=== PATIENT | male | born 1985 | race Caucasian/White ===

== ENCOUNTER 2023-02-13 01:47 | Inpatient (IN) ==
[2023-02-13] MEDS ORDERED: MoRPHine SULFATE 4 MG/ML 1 ML CARP\\VIAL IV STA (02:27)
[2023-02-13] MEDS ORDERED: PROCHLORPERAZINE 1 ML IV ONE (02:27)
[2023-02-13] MEDS ORDERED: SODIUM CHLORIDE 0.9% 500 ML IV ONE (02:27)
--- NOTE | 2023-02-13 02:30 | Emergency Department Note ---
History of Present Illness General Chief complaint: Back Injury/Pain Stated complaint: AUTOCAD LOWER BACK,CANCER PATIENT Time Seen by Provider: 02/13/23 02:01 History of Present Illness Maximum Pain Intensity: 8 This is a 37-year-old male that presents to the emergency department via private vehicle with complaints of "severe low back pain, cancer". Patient here today with at bedside. Patient notes that he was recently diagnosed with pancreatic cancer metastasized to his liver in mid December of this year and then had a biopsy followed by stent placement in his duodenum and is now scheduled to receive chemotherapy through newly placed port starting tomorrow. However, he presents today noting worsening discomfort in his back radiating into the abdomen which is consistent with the pain he had previously but is now worsening. Furthermore, he notes as he is at home analgesic regimen is increasing he feels a twitching in his legs at times as well as increased paranoia. The patient denies any fever or infectious symptoms. He has had some vomiting now over the past 1 to 2 days. Current pain 8/10. He also notes ongoing pain in his right shoulder noting underlying musculoskeletal issue. No chest pain or shortness of breath. Home Medications Medication Instructions Recorded Confirmed Type ergocalciferol (vitamin D2) 1,250 1,250 mcg PO Q7D 01/25/23 02/13/23 History mcg (50,000 unit) capsule levothyroxine 25 mcg capsule 25 mcg PO QAM 01/25/23 02/13/23 History linaclotide 145 mcg capsule 145 mcg PO DAILY PRN Constipation 01/25/23 02/13/23 History (Brenda) naloxegol 12.5 mg tablet (Movantik) 12.5 mg PO QAM #30 tabs 01/25/23 02/13/23 Rx naloxone 4 mg/actuation nasal spray 1 spray intranasal Q3M PRN opioid 01/25/23 02/13/23 Rx overdose #2 ea omeprazole 20 mg capsule,delayed 20 mg PO BID 01/25/23 02/13/23 History release ondansetron 4 mg disintegrating 4 mg PO Q6H PRN Nausea And Vomiting 01/25/23 02/13/23 History tablet polyethylene glycol 3350 17 17 g PO DAILY 01/25/23 02/13/23 History gram/dose oral powder (Miralax) prochlorperazine maleate 5 mg 5 mg PO Q6H PRN nausea and 01/25/23 02/13/23 Rx tablet vomiting #60 tabs fentanyl 25 mcg/hr transdermal 1 patch transdermal Q72H very 02/01/23 02/13/23 Rx patch severe cancer pain 1 month #10 ea oxycodone 15 mg tablet 15 mg PO Q4H PRN severe cancer 02/01/23 02/13/23 Rx pain breakthrough 1 month #120 tabs acetaminophen 500 mg tablet 1,000 mg PO BID PRN Pain 02/06/23 02/13/23 History Allergies Allergy/AdvReac Type Severity Reaction Status Date / Time No Known Drug Allergies Allergy none Verified 02/06/23 07:14 Past Med/Surg History Medical History Hypothyroidism History of COVID-19 01/19/23, tested + [facility], asymptomatic>"never developed any symptoms either" Constipation 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 Beliefs That Will Affect Care: None Current Living Situation: Spouse Other Information That Helps Us Care for You: No Feels Safe at Home: Yes Safety Concerns: Feels Safe At This Time Assistive Devices: Glasses Review of Systems A total of 10 systems reviewed and were otherwise negative Physical Exam Vital Signs Vital Signs - 24 hr 02/13/23 01:52 02/13/23 02:36 02/13/23 02:37 Temperature 36.4 C L Temperature Source Oral Pulse Rate 93 H 75 Pulse Rate [Apical] 87 Respiratory Rate 18 16 Respiratory Effort / Characteristics Non-Labored Spontaneous Respiratory Depth Normal Respiratory Pattern Regular Blood Pressure 142/94 H Blood Pressure [Right Arm] 167/100 H Blood Pressure Mean 110 Blood Pressure Mean [Right Arm] 122 Blood Pressure Position Sitting Pulse Oximetry 99 93 Oxygen Delivery Method Room Air Room Air Sepsis Recent Fever Within 48 Hours No Sepsis New/Unexplained Change in Mental Status N/A Sepsis Action Taken by Nursing No Action Required 02/13/23 03:42 02/13/23 05:04 02/13/23 06:00 Temperature Temperature Source Pulse Rate Pulse Rate [Apical] 79 100 H 88 Respiratory Rate 16 16 16 Respiratory Effort / Characteristics Respiratory Depth Respiratory Pattern Blood Pressure Blood Pressure [Right Arm] 145/91 H 152/87 H 130/79 Blood Pressure Mean Blood Pressure Mean [Right Arm] 109 108 96 Blood Pressure Position Pulse Oximetry 99 97 97 Oxygen Delivery Method Room Air Room Air Room Air Sepsis Recent Fever Within 48 Hours Sepsis New/Unexplained Change in Mental Status Sepsis Action Taken by Nursing 02/13/23 06:28 02/13/23 07:44 02/13/23 08:15 Temperature Temperature Source Pulse Rate 114 H Pulse Rate [Apical] 95 H Respiratory Rate 19 Respiratory Effort / Characteristics Non-Labored Spontaneous Respiratory Depth Normal Respiratory Pattern Blood Pressure Blood Pressure [Right Arm] Blood Pressure Mean Blood Pressure Mean [Right Arm] Blood Pressure Position Pulse Oximetry 96 96 Oxygen Delivery Method Room Air Room Air Sepsis Recent Fever Within 48 Hours Sepsis New/Unexplained Change in Mental Status Sepsis Action Taken by Nursing 02/13/23 10:14 Temperature Temperature Source Pulse Rate Pulse Rate [Apical] 100 H Respiratory Rate 18 Respiratory Effort / Characteristics Non-Labored Respiratory Depth Normal Respiratory Pattern Blood Pressure Blood Pressure [Right Arm] Blood Pressure Mean Blood Pressure Mean [Right Arm] Blood Pressure Position Pulse Oximetry 97 Oxygen Delivery Method Room Air Sepsis Recent Fever Within 48 Hours Sepsis New/Unexplained Change in Mental Status Sepsis Action Taken by Nursing VITAL SIGNS - Vital signs and nursing notes were reviewed. Stable and afebrile. GENERAL -37-year-old male appearing his stated age who is in no acute distress but is pacing about the exam room and holding his low back. Communicates well with provider and answers questions appropriately. SKIN -mildly pale appearance. No lesions or rashes. HEAD - NC/AT. EYES - Sclera with very mild icteric appearance. EARS - No deformities of external structures noted on gross examination bilaterally. NOSE - Midline and without cyanosis. No epistaxis or purulent drainage noted. MOUTH/OROPHARYNX - Without perioral cyanosis. NECK - Neck with FROM. No nuchal rigidity. LUNGS - Chest wall symmetric without accessory muscle use, intercostals retractions, or central cyanosis. Normal vesicular breath sounds CTA B/L. No wheezes, rales, or rhonchi appreciated. CARDIAC - RRR with S1/S2. No murmur, rubs, or gallops appreciated. ABDOMEN - Abdominal contour normal. No guarding or ridigity. EXTREMITIES - No clubbing or peripheral cyanosis. +5/5 strength noted in UE/LE bilaterally. NEUROLOGIC - Cranial nerves II through XII grossly intact. PSYCH - A&O, and cooperates fully with examiner. Pt is very pleasant and interacts well with examiner. Course Administered Medications Enoxaparin Sodium (Enoxaparin Inj 40 Mg/0.4 Ml Syr) 40 mg SQ Q24H [facility] Stop: 03/15/23 12:59 Last Admin: 02/13/23 17:17 Dose: 40 mg Documented By: GARY Fentanyl (Fentanyl 50 Mcg/Hr Tdsy) 50 mcg TD Q3D [facility] Stop: 02/27/23 12:14 Last Admin: 02/13/23 12:26 Dose: 50 mcg Documented By: PRACHI Prochlorperazine 5 mg/ Syringe 5 mls @ 5 mls/min IV Q6H PRN PRN Reason: Nausea And Vomiting Stop: 03/15/23 10:51 Last Admin: 02/13/23 11:24 Dose: 5 mls/min Documented By: PRACHI Flores (Check Fentanyl Patch Placement) 1 each N/A QS [facility] Stop: 03/15/23 15:59 Last Admin: 02/13/23 17:17 Dose: 1 each Documented By: GARY Miscellaneous (Fentanyl Patch Remove & Waste) 1 each N/A Q3D [facility] Stop: 03/15/23 12:13 Last Admin: 02/13/23 13:54 Dose: Not Given Documented By: PRACHI Morphine Sulfate (Morphine Sulfate 4 Mg/Ml 1 Ml Carp\\Vial) 4 mg IV Q4H PRN PRN Reason: Pain (5+) Stop: 02/27/23 10:51 Last Admin: 02/13/23 11:24 Dose: 4 mg Documented By: PRACHI Discontinued Medications Fentanyl Citrate (Fentanyl Citrate Pf 100 Mcg/2 Ml Vial) 50 mcg IV NOW STA Stop: 02/13/23 05:49 Last Admin: 02/13/23 06:03 Dose: 50 mcg Documented By: SOFIA Fentanyl Citrate (Fentanyl Citrate Pf 100 Mcg/2 Ml Vial) 50 mcg IV NOW STA Stop: 02/13/23 07:46 Last Admin: 02/13/23 07:56 Dose: 50 mcg Documented By: ROCIO Sodium Chloride (Nss) 500 mls @ 500 mls/hr IV .Q1H ONE Stop: 02/13/23 03:26 Last Infusion: 02/13/23 04:44 Dose: Infused Documented By: Admin: 02/13/23 03:33 Dose: 500 mls/hr Documented By: SOFIA Prochlorperazine (Compazine) 1 mls @ 1 mls/min IV ONE ONE Stop: 02/13/23 02:28 Last Admin: 02/13/23 03:31 Dose: 1 mls/min Documented By: SOFIA Lactated Ringer's (Lr) 500 mls @ 999 mls/hr IV .Q31M ONE Stop: 02/13/23 11:28 Last Infusion: 02/13/23 12:45 Dose: Infused Documented By: Admin: 02/13/23 11:24 Dose: 999 mls/hr Documented By: PRACHI Ioversol (Optiray 320 500ml) 100 ml IV ONCE ONE Stop: 02/13/23 06:19 Last Admin: 02/13/23 06:18 Dose: 89 ml Documented By: SPARKLE Lorazepam (Lorazepam 1 Mg/1 Ml Syr Ed Inj Use) 1 mg IV ONE STA Stop: 02/13/23 04:25 Last Admin: 02/13/23 04:55 Dose: 1 mg Documented By: SOFIA Morphine Sulfate (Morphine Sulfate 4 Mg/Ml 1 Ml Carp\\Vial) 4 mg IV NOW STA Stop: 02/13/23 02:28 Last Admin: 02/13/23 03:31 Dose: 4 mg Documented By: SOFIA Polyethylene Glycol (Polyethylene (Miralax) 17 Gm Pack) 17 gm PO NOW STA Stop: 02/13/23 11:05 Last Admin: 02/13/23 12:30 Dose: 17 gm Documented By: PRACHI Prochlorperazine (Prochlorperazine 5 Mg/Ml 2 Ml Vial) Confirm Administered Dose 10 mg .ROUTE .STK-MED ONE Stop: 02/13/23 11:18 Last Admin: 02/13/23 11:25 Dose: Not Given Documented By: PRACHI Medical Decision Making Laboratory Data 02/13/23 03:30 02/13/23 03:30 Lab Results 02/13/23 Range/Units 03:30 WBC 7.46 (4.8-10.8) K/ul RBC 4.56 L (4.70-6.10) M/uL Hgb 13.8 L (14.0-18.0) g/dl Hct 40.3 L (42.0-52.0) % MCV 88.4 (80.0-100.0) fL MCH 30.3 (25.0-34.0) pg MCHC 34.2 (32.0-36.0) g/dL RDW Std Deviation 42.0 (36.4-46.3) fL RDW Coeff of Dmitriy 13.0 (11.5-14.5) % Plt Count 170 (130-400) K/uL MPV 11.8 (9.4-12.4) fL Immature Gran % (Auto) 0.3 % Neut % (Auto) 75.3 % Lymph % (Auto) 14.2 % [place] % (Auto) 8.6 % Eos % (Auto) 1.3 % Baso % (Auto) 0.3 % Neut # (Auto) 5.62 (1.40-6.50) K/uL Lymph # (Auto) 1.06 L (1.20-3.40) K/uL [place] # (Auto) 0.64 H (0.11-0.59) K/uL Eos # (Auto) 0.10 (0.00-0.50) K/uL Baso # (Auto) 0.02 (0.00-0.20) K/uL Immature Gran # (Auto) 0.02 (0.01-0.20) K/uL Sodium 139 (136-145) mmol/L Potassium 3.7 (3.5-5.1) mmol/L Chloride 100 (98-107) mmol/L Carbon Dioxide 28 (21-32) mmol/L Anion Gap 11 (3-11) BUN 13 (6-23) mg/dl Creatinine 0.68 (0.6-1.4) mg/dl Est Cr Clr Drug Dosing 172.5 ml/min Est GFR ( Amer) 143.4 ml/min Est GFR (Non-Af Amer) 123.7 ml/min BUN/Creatinine Ratio 19.1 (10-20) Glucose 160 H (70-99(Fasting)) mg/dl Calcium 10.1 (8.6-10.3) mg/dl Total Bilirubin 2.3 H (0.2-1.0) mg/dl AST 110 H (13-39) U/L ALT 183 H (7-52) U/L Alkaline Phosphatase 565 H (34-104) U/L Total Protein 7.4 (6.0-8.3) gm/dl Albumin 4.5 (3.4-5.0) gm/dl Globulin 2.9 (2.5-4.0) gm/dl Albumin/Globulin Ratio 1.6 (0.9-2) Amylase 17 L (25-115) U/L Lipase 8 L (11-82) U/L Imaging Data Radiologist's Impression: Abdomen/Pelvis CT 02/13/23 05:44 CT OF THE ABDOMEN AND PELVIS WITH CONTRAST CLINICAL HISTORY: Abdominal pain, known malignancy, emesis. COMPARISON STUDY: CT of the abdomen and pelvis January 28, 2023. TECHNIQUE: Following IV administration of 89 mL of Optiray, axial images of the abdomen and pelvis were obtained from the lung bases to the proximal femurs. Images were reviewed in the axial, sagittal, and coronal planes. IV contrast was administered without complication. Automated exposure control was utilized for the study. A dose lowering technique was utilized adhering to the principles of ALARA. CT DOSE: 1428.64 mGy.cm FINDINGS: Lung bases are unremarkable. No pneumatosis, free air or portal venous gas is present. Hypodense pancreatic body mass is similar to CT of January 28, 2023, measuring 7.1 x 3.5 cm. A stent within the distal duodenum and proximal jejunum is unchanged in position. There is no evidence for duodenal obstruction. No evidence for a bowel obstruction on this exam. Numerous hepatic lesions are similar to prior CT. Index segment 6 hepatic lesion on image 120 measures 2 cm. Splenomegaly is similar to prior exam. Multiple peritoneal implants are also similar to prior study. These measure up to 1.6 cm. There is trace ascites. 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 There is no hydronephrosis. Adrenal glands are unremarkable. No suspicious osseous lesions are present. Pelvic peritoneal implants are unchanged. There is no evidence for acute appendicitis. IMPRESSION: 1. No significant change since CT of January 28, 2023. The primary pancreatic mass and hepatic and peritoneal metastases are similar to prior CT. Trace ascites. 2. No change in position of a stent within the distal duodenum and proximal jejunum. No evidence for a bowel obstruction. 3. No new sites of metastatic disease identified. 4. Splenomegaly, similar to prior exam. ACT 112: Negative or not required by law. Electronically signed by: Delmar Trinidad M.D. 02/13/2023 6:55 AM MDM Narrative Patient was seen and evaluated as above in room B06. Review was performed of triage nursing notes and vital signs. After obtaining a thorough history and physical examination the above work up was performed. Patient presents to us today for evaluation of worsening low back pain radiating to his abdomen in the setting of rather recently diagnosed pancreatic cancer with metastasis to the liver. Patient is scheduled to have chemotherapy tomorrow. The patient does note recent port placement on the left side of the chest. He is here today noting worsening pain now nausea plus vomiting over the past few days with increasing paranoia he believes from the escalating doses of pain medicine to control his pain. Options of care were discussed with patient as well as at bedside. IV access was established. Labs were drawn. There is no leukocytosis. Mild anemia noted with hemoglobin of 13.8. No evidence of kidney failure. There is interval elevation of T. bili at 2.3. Also mild interval elevation of AST and ALT compared to previous. Alk phos 565. The patient did require several doses of IV analgesia here to help control the pain. IV Compazine also provided as the patient notes minimal relief with Zofran and previously noted relief with Compazine on her recent ED visit. The patient did fall at bedside not long after he was here. I was called by the RN and immediately went to bedside. ED attending physician was also at bedside. It appears the patient was standing at the foot of the bed and this was witnessed by his . He had a twitching sensation to his legs and he fell. He notes some soreness in his shoulder which has a known musculoskeletal issue. He denies striking the head or loss of consciousness. No chest pain. No trouble breathing. Overall he appears to not have sustained any concerning injury from the fall. In regard to the patient's new onset nausea/vomiting over the past day decision was made to add CT scan of the abdomen/pelvis to ensure no significant change. Results of the CT scan as above. This was essentially unchanged from previous CT scan of January 28. The patient is scheduled for chemotherapy and just a few hours from now. I discussed several options with the patient. He and his expressed concern over being discharged to attend chemotherapy noting the significant troubles managing his symptoms as an outpatient. I did have our team reach out to the physician on-call for the patient's established oncologist. I then spoke with Dr. Álvarez. He came to evaluate the patient. We discussed options. These options were presented to the patient and the patient ultimately would like to stay in the hospital for pain control and further control of his symptoms. Case discussed with the hospitalist service. Please refer to further documentation regarding his stay. Case was discussed with the attending physician GCS: 15 In the evaluation and treatment of this patient the following differential diagnoses were entertained: Cancer related pain, bowel obstruction, fracture, pancreatitis, cholecystitis, choledocholithiasis, among others. Impression & Plan Cancer related pain, Elevated LFTs, Pancreatic cancer metastasized to liver Discharge Plan Visit Data Chief Complaint: Back Injury/Pain Stated Complaint: AUTOCAD LOWER BACK,CANCER PATIENT ED Provider: Beatriz Gamez ED Midlevel Provider: Usama Trevino Discharge Problem: Cancer related pain, Elevated LFTs, Pancreatic cancer metastasized to liver Patient Disposition: Admitted As Inpatient Condition: Good Discharge Instructions Interventions: ED Discharge Assessment Last Done: 02/13/23 12:28
[2023-02-13 03:44] LABS: Basophils # (auto) 0.02 K/uL (0.00-0.20); Basophils % (auto) 0.3 %; Eosinophils % (auto) 1.3 %; Hematocrit (blood only) 40.3 % (42.0-52.0); Hemoglobin 13.8 g/dl (14.0-18.0); Immature Granulocytes # (auto) 0.02 K/uL (0.01-0.20); Immature Granulocytes % (auto) 0.3 %; Lymphocytes # (auto) 1.06 K/uL (1.20-3.40); Lymphocytes % (auto) 14.2 %; Mean Corpuscular Hemoglobin 30.3 pg (25.0-34.0); Mean Corpuscular Hgb Conc 34.2 g/dL (32.0-36.0); Mean Corpuscular Volume 88.4 fL (80.0-100.0); Mean Platelet Volume 11.8 fL (9.4-12.4); Monocytes # (auto) 0.64 K/uL (0.11-0.59); Monocytes % (auto) 8.6 %; Neutrophils # (auto) 5.62 K/uL (1.40-6.50); Neutrophils % (auto) 75.3 %; Platelet Count 170 K/uL (130-400); Red Blood Count 4.56 M/uL (4.70-6.10); White Blood Count 7.46 K/ul (4.8-10.8)
[2023-02-13 04:00] LABS: Albumin Globulin Ratio 1.6 (0.9-2); Albumin Level 4.5 gm/dl (3.4-5.0); BUN Creatinine Ratio 19.1 (10-20); Bilirubin,Total 2.3 mg/dl (0.2-1.0); Calcium 10.1 mg/dl (8.6-10.3); Creatinine Clr Calc Pharmacy 172.5 ml/min; Est GFR (African American) 143.4 ml/min; Est GFR (Non-African American) 123.7 ml/min; Globulin 2.9 gm/dl (2.5-4.0); Potassium 3.7 mmol/L (3.5-5.1); Total Protein 7.4 gm/dl (6.0-8.3)
[2023-02-13] MEDS ORDERED: LORazepam 1 MG/1 ML SYR ED Inj Use IV STA (04:24)
[2023-02-13] MEDS ORDERED: fentaNYL citrate PF 100 MCG/2 ML VIAL IV STA ×2 (05:48→07:45)
[2023-02-13] MEDS ORDERED: OPTIRAY 320 500ml IV ONE (06:18)
--- NOTE | 2023-02-13 06:58 | CT Scan Report ---
CT OF THE ABDOMEN AND PELVIS WITH CONTRAST CLINICAL HISTORY: Abdominal pain, known malignancy, emesis. COMPARISON STUDY: CT of the abdomen and pelvis January 28, 2023. TECHNIQUE: Following IV administration of 89 mL of Optiray, axial images of the abdomen and pelvis we re obtained from the lung bases to the proximal femurs. Images were reviewed in the axial, sagittal, and coronal planes. IV contrast was administered without complication. Automated exposure control wa s utilized for the study. A dose lowering technique was utilized adhering to the principles of ALARA . CT DOSE: 1428.64 mGy.cm FINDINGS: Lung bases are unremarkable. No pneumatosis, free air or portal venous gas is present. Hypo dense pancreatic body mass is similar to CT of January 28, 2023, measuring 7.1 x 3.5 cm. A stent wit hin the distal duodenum and proximal jejunum is unchanged in position. There is no evidence for duode nal obstruction. No evidence for a bowel obstruction on this exam. Numerous hepatic lesions are simil ar to prior CT. Index segment 6 hepatic lesion on image 120 measures 2 cm. Splenomegaly is similar to prior exam. Multiple peritoneal implants are also similar to prior study. These measure up to 1.6 cm . There is trace ascites. 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 There is no hydronephrosis. Adrenal glands are unremarkable. No suspicious osseous lesions are present. Pelvi c peritoneal implants are unchanged. There is no evidence for acute appendicitis. IMPRESSION: 1. No significant change since CT of January 28, 2023. The primary pancreatic mass and hepatic and p eritoneal metastases are similar to prior CT. Trace ascites. 2. No change in position of a stent within the distal duodenum and proximal jejunum. No evidence for a bowel obstruction. 3. No new sites of metastatic disease identified. 4. Splenomegaly, similar to prior exam. ACT 112: Negative or not required by law. Electronically signed by: Delmar Trinidad M.D. 02/13/2023 6:55 AM
--- NOTE | 2023-02-13 09:50 | Oncology Consultation ---
Date of Consultation February 13, 2023 Assessment & Plan (1) Cancer related pain: When I evaluated him in the ER, the pain had improved to about 3 out of 10 in intensity. I had a discussion with him about being discharged and outpatient management of the pain. However the and the patient are concerned about pain intractable pain in an outpatient setting. had a discussion with our ER colleague, explained about outpatient pain management (2) Pancreatic cancer metastasized to liver: Explained to the patient that chemotherapy should not be given as an emergency. I will leave institution of palliative chemotherapy inpatient after discussion with Dr. Sampson. At this point I do not see a medical reason to institute chemotherapy urgently, especially if he is admitted. Medical oncology will continue to follow the patient and make appropriate recommendations Plan Disposition per our ER colleagues. Inpatient versus outpatient management of pain. At this point we will hold institution of palliative chemotherapy if the patient is admitted. Oncology will continue to follow and make appropriate recommendations. History of Present Illness Reason for Consultation: Metastatic pancreatic cancer Cancer related pain History of Present Illness The patient is a very pleasant 37-year-old gentleman, known to our practice after being diagnosed with metastatic pancreatic cancer. He has been dealing with severe intractable pain over the last few days. Previously his fentanyl patch was increased to 37.5. I got a call from his last night about severe cancer related pain. At that time the pain was about 8 out of 10 in intensity. I requested him to take additional oxycodone. After no improvement in the symptoms the patient decided to come to the [facility] emergency department. He was due to start his treatment for cancer today. During my visit the patient reported a pain of 3 out of 10 in intensity. He has been dealing with some intermittent nausea, anxiety related to her oxycodone Allergies Allergy/AdvReac Type Severity Reaction Status Date / Time No Known Drug Allergies Allergy none Verified 02/06/23 07:14 Home Medications Medication Instructions Recorded Confirmed Type ergocalciferol (vitamin D2) 1,250 1,250 mcg PO Q7D 01/25/23 02/06/23 History mcg (50,000 unit) capsule levothyroxine 25 mcg capsule 25 mcg PO QAM 01/25/23 02/06/23 History linaclotide 145 mcg capsule 145 mcg PO DAILY PRN Constipation 01/25/23 02/06/23 History (Linzess) naloxegol 12.5 mg tablet (Movantik) 12.5 mg PO QAM #30 tabs 01/25/23 02/06/23 Rx naloxone 4 mg/actuation nasal spray 1 spray intranasal Q3M PRN opioid 01/25/23 02/01/23 Rx overdose #2 ea omeprazole 20 mg capsule,delayed 20 mg PO BID 01/25/23 02/06/23 History release ondansetron 4 mg disintegrating 4 mg PO Q6H PRN Nausea And Vomiting 01/25/23 02/06/23 History tablet polyethylene glycol 3350 17 17 g PO DAILY 01/25/23 02/06/23 History gram/dose oral powder (Miralax) prochlorperazine maleate 5 mg 5 mg PO Q6H PRN nausea and 01/25/23 02/06/23 Rx tablet vomiting #60 tabs fentanyl 25 mcg/hr transdermal 1 patch transdermal Q72H very 02/01/23 02/06/23 Rx patch severe cancer pain 1 month #10 ea oxycodone 15 mg tablet 15 mg PO Q4H PRN severe cancer 02/01/23 02/06/23 Rx pain breakthrough 1 month #120 tabs acetaminophen 500 mg tablet 1,000 mg PO BID PRN Pain 02/06/23 02/06/23 History Patient History Medical History (Updated 02/13/23 @ 00:06 by Donavan Pereira) History of COVID-19 01/19/23, [facility], asymptomatic>"never developed any symptoms either" Constipation Patellofemoral syndrome of both knees dx age 19 Hx of migraines History of palpitations brought under control w/thyroid medications GERD (gastroesophageal reflux disease) Cancer related pain Pancreatic cancer metastasized to liver dx 12/2022 Hypothyroidism Surgical History (Updated 02/06/23 @ 09:05 by Eileen Pena RN) Port-A-Cath in place (02/06/23) Insertion Port left subclavian vein Dr. Burton History of esophagogastroduodenoscopy (EGD) Hx of lymph node biopsy node removed near throat Social History Smoking Status: Never smoker Second Hand Exposure: Yes (hx); Do You Dip or Chew Tobacco: No; Hx Alcohol Use: No Hx Substance Use: No Preferred Language: Portuguese Communication Ability: Effective Memorial Counselor Required: No Beliefs That Will Affect Care: None Current Living Situation: Spouse Feels Safe at Home: Yes Assistive Devices: Glasses Results & Data Vital Signs (Past 12 Hours) Vital Signs Temp Pulse Pulse Resp BP BP Pulse Ox 02/13/23 08:15 95 H 19 96 02/13/23 07:44 96 02/13/23 06:28 114 H 02/13/23 06:00 88 16 130/79 97 02/13/23 05:04 100 H 16 152/87 H 97 02/13/23 03:42 79 16 145/91 H 99 02/13/23 02:37 75 02/13/23 02:36 87 16 167/100 H 93 02/13/23 01:52 36.4 C L 93 H 18 142/94 H 99 O2 Del Method 02/13/23 08:15 Room Air 02/13/23 07:44 Room Air 02/13/23 06:28 02/13/23 06:00 Room Air 02/13/23 05:04 Room Air 02/13/23 03:42 Room Air 02/13/23 02:37 02/13/23 02:36 Room Air 02/13/23 01:52 Room Air
--- NOTE | 2023-02-13 10:22 | Communication Note ---
Date of Service: February 13, 2023 Brief Palliative Medicine Note Patrick is well known to me from [facility] clinic where I followed him for very severe cancer pain due pancreatic ca Unfortunately his insurance company is refusing to authorize coverage for increased doses of TDF and oral oxycodone, despite several of our attempts in CCP to prior auth and appeal this refusal to provide him with necessary medicine for relief of very severe cancer pain. The insurance company has provided as reason of "medication exceeds daily MME." However there has been no comment about the nature of the pain from progressive pancreatic caner and its severe nature. I have asked prior auth team to submit medical assistant float appeal and I have asked them t have call their insurance co to see if he has been or can be assigned a case resolution specialist to help them navigate these issues. We may have to switch his opioids but I suspect his insurance company will continue to obstruct the process with their global denial reason of "exceeds daily MME" with no further consideration of this individual patient's circumstances and medical needs. He may need to consider some interventional pain remedies while oral regimens are more exhaustively researched. Thank you for allowing us to participate in the ongoing care of this patient. Please don't hesitate to call or page with any additional concerns. Dr. Antonietta Manzano DNP Director, Palliative Care
--- NOTE | 2023-02-13 10:28 | History & Physical Report ---
Date of Service February 13, 2023 Assessment & Plan (1) Cancer related pain: Plan: -Admit to med/tele -Currently stable with pain at 05/29 -Has known pain in the upper abdomen and upper thoracic spine from his recently diagnosed metastatic adenocarcinoma of the Pancrease with mets to the liver -Sites of pain have not changed, uncontrolled since the weekend despite increasing dose of fentanyl patch -CT of the abd/pelvis w/IV con was negative for acute changes, duodenal stent is in place -Was seen by heme/onc, they will wait to start his chemotherapy until he is discharged -Will increase his fentanyl patch to 50 mcg on admission -PRN IV morphine q4h prn pain 5+ -If pain continues to be uncontrolled can consult palliative med for assistance -PRN Narcan for oversedation/respiratory depression -Fall precautions -SQ Lovenox for DVT PPX -Lactose free diet -AM CBC, CMP, mag (2) Elevated LFTs: Plan: -All LFT's increased compared to 01/28 -Trace scleral icterus on exam -CT of the abd/pelvis w/IV con without signs of biliary obstruction with duodenal stent in place -Likely due to his known metastatic pancreatic caner with mets to the liver -Will give an additional 500 mL LR bolus on admission -Monitor daily CMP (3) Pancreatic cancer metastasized to liver: Plan: -Continue to follow with hem/onc on discharge -Heme/onc consulted by the ED, they will follow while admitted (4) Hypothyroidism: Plan: -Continue levothyroxine (5) GERD (gastroesophageal reflux disease): Plan: -Continue BID PPI Plan The patient was discussed with Dr. Leblanc at the time of the admission History of Present Illness Chief Complaint: Back/abdominal pain Primary Care Provider: Jennifer Nguyen is a 37 year old male with a PMH significant for recently diagnosed adenocarcinoma of the pancreas with metastases to the liver S/P duodenal stent placement with cancer related pain, hypothyroidism, who presented to the [facility] ED on 02/13 with uncontrolled cancer-related pain to the abdomen and back. He was initially noted to be tachycardic at 114 but was otherwise stable. Labs were significant for a total bili of 2.3, AST of 110, ALT of 183, alk phos of 565. CT of the abd/pelvis w/IV con was read as "1. No significant change since CT of January 28, 2023. The primary pancreatic mass and hepatic and peritoneal metastases are similar to prior CT. Trace ascites. 2. No change in position of a stent within the distal duodenum and proximal jejunum. No evidence for a bowel obstruction. 3. No new sites of metastatic disease identified. 4. Splenomegaly, similar to prior exam.". The patient was given 4 mg IV morphine and 2 doses of 50 mcg IV fentanyl with improvement in his pain to a 3/10. He was evaluated by Heme/onc who discussed the possibility of ongoing outpatient pain management with the patient and his . At this time they requested admission for pain management as they are concerned he will continue to have uncontrolled pain after discharge home. At the time of the exam the patient was sitting in bed in no acute distress with his sitting bedside, history was obtained from both. He has been following with [facility] palliative medicine for his cancer related pain. The sites of his chronic pain are the epigastric region, RUQ and LUQ, and upper thoracic spine. The sites of his pain have not changed, but the severity has been increased into the 8-10's since the weekend. They called the road conductor Palliative medicine provider on 02/10 who had him increased the dose of his fentanyl patch from 25 mcg to 37.5 mcg. He was also using his prn PO oxycodone without relief. They also state that he gets some brain fog when using the PO oxycodone. They deny recent fever, chills, chest pain, SOB, dysuria, hematuria, diarrhea, LE swelling or pain. They state that he had to lower himself to the ground early this am on arrival due to his pain being so severe. He denies losing consciousness or hitting his head and denies any symptoms such as lightheadedness, dizziness, chest pain, or palpitations. His pain is currently at a 4/10 at the time of my exam. Please refer to Dr. Leblanc's attestation for any changes to the treatment plan Allergies Allergy/AdvReac Type Severity Reaction Status Date / Time No Known Drug Allergies Allergy none Verified 02/06/23 07:14 Home Medications Medication Instructions Recorded Confirmed Type ergocalciferol (vitamin D2) 1,250 1,250 mcg PO Q7D 01/25/23 02/13/23 History mcg (50,000 unit) capsule levothyroxine 25 mcg capsule 25 mcg PO QAM 01/25/23 02/13/23 History linaclotide 145 mcg capsule 145 mcg PO DAILY PRN Constipation 01/25/23 02/13/23 History (Rosiezeskel) naloxegol 12.5 mg tablet (Movantik) 12.5 mg PO QAM #30 tabs 01/25/23 02/13/23 Rx naloxone 4 mg/actuation nasal spray 1 spray intranasal Q3M PRN opioid 01/25/23 02/13/23 Rx overdose #2 ea omeprazole 20 mg capsule,delayed 20 mg PO BID 01/25/23 02/13/23 History release ondansetron 4 mg disintegrating 4 mg PO Q6H PRN Nausea And Vomiting 01/25/23 02/13/23 History tablet polyethylene glycol 3350 17 17 g PO DAILY 01/25/23 02/13/23 History gram/dose oral powder (Miralax) prochlorperazine maleate 5 mg 5 mg PO Q6H PRN nausea and 01/25/23 02/13/23 Rx tablet vomiting #60 tabs fentanyl 25 mcg/hr transdermal 1 patch transdermal Q72H very 02/01/23 02/13/23 Rx patch severe cancer pain 1 month #10 ea oxycodone 15 mg tablet 15 mg PO Q4H PRN severe cancer 02/01/23 02/13/23 Rx pain breakthrough 1 month #120 tabs acetaminophen 500 mg tablet 1,000 mg PO BID PRN Pain 02/06/23 02/13/23 History Past Med/Surg History Medical History (Updated 02/13/23 @ 11:09 by Titus Guillen PA-C) Hypothyroidism History of COVID-19 01/19/23, tested + [facility] ER, asymptomatic>"never developed any symptoms either" Constipation Patellofemoral syndrome of both knees dx age 19 Hx of migraines History of palpitations brought under control w/thyroid medications GERD (gastroesophageal reflux disease) Cancer related pain Pancreatic cancer metastasized to liver dx 12/2022 Surgical History (Updated 02/06/23 @ 09:05 by Eileen Pena RN) Port-A-Cath in place (02/06/23) Insertion Port left subclavian vein Dr. Burton History of esophagogastroduodenoscopy (EGD) Hx of lymph node biopsy node removed near throat Social History Smoking Status: Never smoker Second Hand Exposure: Yes (hx); Do You Dip or Chew Tobacco: No; Hx Alcohol Use: No Hx Substance Use: No Preferred Language: Yi Communication Ability: Effective Device Engineer Required: No Beliefs That Will Affect Care: None Current Living Situation: Spouse Feels Safe at Home: Yes Assistive Devices: Glasses Physical Exam Physical Exam: Physical Exam: General: In no acute distress, stated age, non-toxic appearing HEENT: Normocephalic, atraumatic, trace scleral icterus, pupils around round, symmetrical, and reactive to light, dry mucus membranes, trachea midline, no thyromegaly Chest/Pulm: No respiratory distress, symmetrical chest expansion, clear breath sounds throughout Cardiac: RRR, no murmurs noted Abdomen: Negative for ascites and bruising, normoactive bowel sounds, soft, tender to palpation in the epigastric region and RUQ without rebound tenderness, otherwise non-tender Musculoskeletal: Symmetrical and without signs of acute trauma, upper and lower extremities with full ROM, no atrophy, spasticity, or flaccidity; tenderness to palpation of the upper thoracic spine without sings of step off or asymmetry Extremities: Radial, dorsalis pedis, and posterior tibial pulses are intact and symmetrical, no edema noted in the BL LE's Skin: Warm, dry, no rashes , lesions, or scars noted Neuro: Alert and oriented to person, place, month, year, and president, no focal defects, no tremors noted Psych: No acute distress, calm and cooperative during the exam Results & Data Results & Data Vital Signs (Past 12 Hours) Vital Signs Temp Pulse Pulse Resp BP BP Pulse Ox 02/13/23 10:14 100 H 18 97 02/13/23 08:15 95 H 19 96 02/13/23 07:44 96 02/13/23 06:28 114 H 02/13/23 06:00 88 16 130/79 97 02/13/23 05:04 100 H 16 152/87 H 97 02/13/23 03:42 79 16 145/91 H 99 02/13/23 02:37 75 02/13/23 02:36 87 16 167/100 H 93 02/13/23 01:52 36.4 C L 93 H 18 142/94 H 99 O2 Del Method 02/13/23 10:14 Room Air 02/13/23 08:15 Room Air 02/13/23 07:44 Room Air 02/13/23 06:28 02/13/23 06:00 Room Air 02/13/23 05:04 Room Air 02/13/23 03:42 Room Air 02/13/23 02:37 02/13/23 02:36 Room Air 02/13/23 01:52 Room Air Laboratory Results Abnormal lab results 02/13/23 Range/Units 03:30 RBC 4.56 L (4.70-6.10) M/uL Hgb 13.8 L (14.0-18.0) g/dl Hct 40.3 L (42.0-52.0) % Lymph # (Auto) 1.06 L (1.20-3.40) K/uL [place] # (Auto) 0.64 H (0.11-0.59) K/uL Glucose 160 H (70-99(Fasting)) mg/dl Total Bilirubin 2.3 H (0.2-1.0) mg/dl AST 110 H (13-39) U/L ALT 183 H (7-52) U/L Alkaline Phosphatase 565 H (34-104) U/L Amylase 17 L (25-115) U/L Lipase 8 L (11-82) U/L Diagnostic Findings Abdomen/Pelvis CT 02/13/23 05:44 CT OF THE ABDOMEN AND PELVIS WITH CONTRAST CLINICAL HISTORY: Abdominal pain, known malignancy, emesis. COMPARISON STUDY: CT of the abdomen and pelvis January 28, 2023. TECHNIQUE: Following IV administration of 89 mL of Optiray, axial images of the abdomen and pelvis were obtained from the lung bases to the proximal femurs. Images were reviewed in the axial, sagittal, and coronal planes. IV contrast was administered without complication. Automated exposure control was utilized for the study. A dose lowering technique was utilized adhering to the principles of ALARA. CT DOSE: 1428.64 mGy.cm FINDINGS: Lung bases are unremarkable. No pneumatosis, free air or portal venous gas is present. Hypodense pancreatic body mass is similar to CT of January 28, 2023, measuring 7.1 x 3.5 cm. A stent within the distal duodenum and proximal jejunum is unchanged in position. There is no evidence for duodenal obstruction. No evidence for a bowel obstruction on this exam. Numerous hepatic lesions are similar to prior CT. Index segment 6 hepatic lesion on image 120 measures 2 cm. Splenomegaly is similar to prior exam. Multiple peritoneal implants are also similar to prior study. These measure up to 1.6 cm. There is trace ascites. 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 There is no hydronephrosis. Adrenal glands are unremarkable. No suspicious osseous lesions are present. Pelvic peritoneal implants are unchanged. There is no evidence for acute appendicitis. IMPRESSION: 1. No significant change since CT of January 28, 2023. The primary pancreatic mass and hepatic and peritoneal metastases are similar to prior CT. Trace ascites. 2. No change in position of a stent within the distal duodenum and proximal jejunum. No evidence for a bowel obstruction. 3. No new sites of metastatic disease identified. 4. Splenomegaly, similar to prior exam. ACT 112: Negative or not required by law. Electronically signed by: Delmar Trinidad M.D. 02/13/2023 6:55 AM Code Status & VTE Plan Code Status Full code VTE Prophylaxis Plan VTE Prophylaxis will be ordered: Yes Supervising Physician Co-Signing Physician Notes Attending addendum: I have physically seen this patient, have supervised the CORI's activities, and agree with the H&P unless as otherwise noted. Assessment and Plan: Uncontrolled cancer pain- Metastatic pancreatic adenocarcinoma with mets to liver Patient had his fentanyl patch increased from 25 to 37.5 mcg every 72 hours 48 hours ago, and I am unable to tolerate oral Increase fentanyl patch from 37.5 to 50 mcg IV morphine for breakthrough as noted Notations from palliative care Dr. Manzano reviewed regarding insurance's inability/unwillingness to cover fentanyl patch Consult pain management Consult hematology/oncology Narcan per protocol Elevated LFTs- Secondary to mets Follow serially Metastatic pancreatic adenocarcinoma- Patient was to start chemotherapy, which has been transiently deferred Consult heme/oncology Continue other medications and notes as noted PG Care Time/CCT Total # of Minutes Spent Total Time Spent with Patient: Total time spent is greater than 50% in coordination of care (as documented) at patient's floor/unit and/or counseling patient: Coding [place] [address] INT INP/OBS CARE 2/55MIN Patient Type Established Medical Decision Making Moderate Complexity Diagnoses Cancer related pain G89.3 Elevated LFTs R79.89 Pancreatic cancer metastasized to liver C25.9; C78.7 Hypothyroidism E03.9 GERD (gastroesophageal reflux disease) K21.9
[2023-02-13] MEDS ORDERED: NALOXONE HCL 0.4 MG/1 ML VIAL/CARP IV PRN (10:52)
[2023-02-13] MEDS ORDERED: LACTATED RINGER'S 500 ML IV ONE (10:58)
[2023-02-13] MEDS ORDERED: POLYETHYLENE (MIRALAX) 17 GM PACK PO STA (11:04)
[2023-02-13] MEDS ORDERED: PROCHLORPERAZINE 5 MG/ML 2 ML VIAL ONE (11:17)
[2023-02-13] MEDS: MoRPHine SULFATE 4 MG/ML 1 ML CARP\\VIAL IV PRN ×2 (11:24→21:21)
[2023-02-13] MEDS: PROCHLORPERAZINE 5 MG in SYRINGE 4 ML IV PRN ×2 (11:24→21:20)
[2023-02-13] MEDS ORDERED: fentaNYL 50 MCG/HR TDSY TD SCH (12:15)
[2023-02-13] MEDS: ENOXAPARIN INJ 40 MG/0.4 ML SYR SQ SCH (17:17)
[2023-02-13] MEDS: CHECK fentaNYL PATCH PLACEMENT SCH ×2 (17:17→23:20)
[2023-02-13] MEDS: PANTOprazole 40 MG TAB PO SCH (21:19)
[2023-02-14] MEDS: LEVOTHYROXINE SODIUM 25 MCG TABLET PO SCH (05:40)
[2023-02-14] MEDS: MoRPHine SULFATE 4 MG/ML 1 ML CARP\\VIAL IV PRN ×2 (05:44→18:16)
[2023-02-14] MEDS: PROCHLORPERAZINE 5 MG in SYRINGE 4 ML IV PRN ×2 (06:00→12:52)
[2023-02-14 06:36] LABS: Hematocrit (blood only) 35.5 % (42.0-52.0); Hemoglobin 12.4 g/dl (14.0-18.0); Mean Corpuscular Hemoglobin 30.3 pg (25.0-34.0); Mean Corpuscular Hgb Conc 34.9 g/dL (32.0-36.0); Mean Corpuscular Volume 86.8 fL (80.0-100.0); Mean Platelet Volume 12.5 fL (9.4-12.4); Platelet Count 112 K/uL (130-400); RDW Coefficient of Variation 12.7 % (11.5-14.5); RDW Standard Deviation 40.7 fL (36.4-46.3); Red Blood Count 4.09 M/uL (4.70-6.10); White Blood Count 4.51 K/ul (4.8-10.8)
[2023-02-14 06:49] LABS: Alanine Aminotransferase 137 U/L (7-52); Albumin Globulin Ratio 1.5 (0.9-2); Albumin Level 3.7 gm/dl (3.4-5.0); Alkaline Phosphatase 432 U/L (34-104); Anion Gap 7 (3-11); Aspartate Aminotransferase 72 U/L (13-39); BUN Creatinine Ratio 22.6 (10-20); Bilirubin,Total 2.3 mg/dl (0.2-1.0); Blood Urea Nitrogen 12 mg/dl (6-23); Calcium 9.4 mg/dl (8.6-10.3); Carbon Dioxide 29 mmol/L (21-32); Chloride 101 mmol/L (98-107); Creatinine Clr Calc Pharmacy 221.3 ml/min; Est GFR (African American) > 150.0 ml/min; Est GFR (Non-African American) 137.1 ml/min; Globulin 2.4 gm/dl (2.5-4.0); Glucose 143 mg/dl (70-99(Fasting)); Magnesium 1.9 mg/dl (1.7-2.4); Potassium 3.7 mmol/L (3.5-5.1); Sodium 137 mmol/L (136-145); Total Protein 6.1 gm/dl (6.0-8.3)
[2023-02-14 06:57] LABS: INR 1.2 (0.9-1.1); Prothrombin Time 12.9 Seconds (9.0-12.0)
--- NOTE | 2023-02-14 08:20 | Pain Management Consultation ---
Date of Consultation February 14, 2023 Assessment & Plan (1) Cancer related pain: (2) Pancreatic cancer metastasized to liver: (3) Paranoia: (4) Insomnia due to psychological stress: Plan 1. Would recommend patient maintain fentanyl at 50 mcg dosing at this time 2. Will initiate MS IR 15 mg every 4 hours for as needed breakthrough pain in an attempt to assess tolerability of oral morphine. Patient may reserve IV morphine for backup 3. Will request psych/behavioral health evaluation due to his report of paranoia with use of Oxy IR but also some ongoing anxiety and mind racing contributing to poor sleep likely associated with his new cancer diagnosis. Will defer medical management recommendations to behavioral health 4. Patient will continue with MiraLAX upon this admission. Movantik currently not on formulary at [facility]. Patient may need to utilize his home supply of Movantik 5. Pain service will continue to defer celiac plexus block at this time Thank you for allowing us to participate in the care of Mr. Dunbar. History of Present Illness Reason for Consultation: Cancer related abdominal pain Requesting Physician: Titus Guillen PA-C Attending Physician: Gael Quinteros MD History of Present Illness Mr. Dunbar is a 37-year-old white male who is known to the pain service from outpatient evaluation relating to his cancer related pain. Patient has history of recent diagnosis of pancreatic cancer with metastasis to liver who is currently working with palliative care in the outpatient setting regarding his pain management regimen. He is awaiting initiation of cancer related treatment. Patient was reportedly utilizing fentanyl 37.5 mcg dosing in the outpatient setting and Oxy IR 15 mg 2-3 times daily in the outpatient setting immediately prior to his admission. He had had an episode where one of his fentanyl patches had fallen off and he had some mild withdrawal type symptoms. He was experiencing significant difficulties with paranoia with use of Oxy IR and he was therefore attempting to limit the use of the Oxy IR for 2 or 3 days prior to his admission. He reported due to this limitation of Oxy IR use and the diminished dosing of the fentanyl patch he had had significant increase in his abdominal pain which led to this admission. His fentanyl was increased to 50 mcg upon this admission and has been utilizing IV morphine 4 mg for breakthrough pain-3 doses over past 24 hours. He reports his pain control is improved currently rating his abdominal pain at a 3-4/10 ranging between a 3-8/10. Patient indicates he is tolerating IV morphine other than sedation as well as the fentanyl patch increase. He denies abdominal pain or fullness. He has been moving his bowels prior to admission but has not had bowel movement over the past 24 hours. His dietary intake has been minimal. His nausea is currently adequately controlled with Compazine. The patient reports significant paranoia with use of Oxy IR which is improved. He does have difficulties with mind racing inhibiting sleep quality and quantity and a prior history of mild anxiety prior to recent cancer diagnosis. He has no prior history of utilization of antidepressants or antianxiety medications. He does report significant paranoia with use of medical marijuana in the outpatient setting as well. He has not been evaluated by behavioral health. Patient has no further constitutional complaints at this time. Plan of care discussed with Dr. Fung. Pain Assessment Full Body Front + Back: 2 1. Midepigastric abdomen Pain scale - at its best (0-10): 3 Pain scale - at its worst (0-10): 8 Allergies Allergy/AdvReac Type Severity Reaction Status Date / Time No Known Drug Allergies Allergy none Verified 02/06/23 07:14 Home Medications Medication Instructions Recorded Confirmed Type ergocalciferol (vitamin D2) 1,250 1,250 mcg PO Q7D 01/25/23 02/13/23 History mcg (50,000 unit) capsule levothyroxine 25 mcg capsule 25 mcg PO QAM 01/25/23 02/13/23 History linaclotide 145 mcg capsule 145 mcg PO DAILY PRN Constipation 01/25/23 02/13/23 History (Linzess) naloxegol 12.5 mg tablet (Movantik) 12.5 mg PO QAM #30 tabs 01/25/23 02/13/23 Rx naloxone 4 mg/actuation nasal spray 1 spray intranasal Q3M PRN opioid 01/25/23 02/13/23 Rx overdose #2 ea omeprazole 20 mg capsule,delayed 20 mg PO BID 01/25/23 02/13/23 History release ondansetron 4 mg disintegrating 4 mg PO Q6H PRN Nausea And Vomiting 01/25/23 02/13/23 History tablet polyethylene glycol 3350 17 17 g PO DAILY 01/25/23 02/13/23 History gram/dose oral powder (Miralax) prochlorperazine maleate 5 mg 5 mg PO Q6H PRN nausea and 01/25/23 02/13/23 Rx tablet vomiting #60 tabs fentanyl 25 mcg/hr transdermal 1 patch transdermal Q72H very 02/01/23 02/13/23 Rx patch severe cancer pain 1 month #10 ea oxycodone 15 mg tablet 15 mg PO Q4H PRN severe cancer 02/01/23 02/13/23 Rx pain breakthrough 1 month #120 tabs acetaminophen 500 mg tablet 1,000 mg PO BID PRN Pain 02/06/23 02/13/23 History Pain History Pain Intensity Pain scale - at its best (0-10): 3 Pain scale - at its worst (0-10): 8 Patient History Medical History (Updated 02/14/23 @ 08:25 by Armando Cobb PA-C) Insomnia due to psychological stress Paranoia Hypothyroidism History of COVID-19 01/19/23, tested + [facility], asymptomatic>"never developed any symptoms either" Constipation 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 Burton History of esophagogastroduodenoscopy (EGD) Hx of lymph node biopsy node removed near throat Social History Smoking Status: Never smoker Second Hand Exposure: No; Do You Dip or Chew Tobacco: No; Tobacco Cessation Education Requested by Patient: No Hx Alcohol Use: No Hx Substance Use: No Preferred Language: Sami Communication Ability: Effective Cafeteria Associate Required: No Beliefs That Will Affect Care: None Current Living Situation: Spouse Other Information That Helps Us Care for You: No Feels Safe at Home: Yes Safety Concerns: Feels Safe At This Time Assistive Devices: Glasses Physical Exam 2 Physical Exam: General: Patient sleeping upon entering the room. Patient easily arousable. Patient in no acute distress. Speech and thought process appropriate. Mood and affect appropriate. Cognition intact. Head: Normocephalic and atraumatic. ENT: No evidence of nasal or oral mucosal lesions. Mucous membranes are moist. Eyes: Pupils equal round reactive to light. Neck: Supple without adenopathy and full range of motion. Chest: Nontender to palpation of the costosternal junction. Nontender along the costal margin. Nontender with AP/lateral compression. Extremities: Fentanyl patch 50 mcg present on right deltoid. Abdomen: Soft and nondistended. No organomegaly. Bowel sounds active. Neurologic: Cranial nerves grossly intact. Ambulatory function not witnessed. 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 Service Date: 02/13/23 [facility] Phy: Interpreting Phy: Delmar Trinidad MDAdmit Phy: Ordering Phy: Usama Trevino PA-C cc: ~ CT OF THE ABDOMEN AND PELVIS WITH CONTRAST CLINICAL HISTORY: Abdominal pain, known malignancy, emesis. COMPARISON STUDY: CT of the abdomen and pelvis January 28, 2023. TECHNIQUE: Following IV administration of 89 mL of Optiray, axial images of the abdomen and pelvis were obtained from the lung bases to the proximal femurs. Images were reviewed in the axial, sagittal, and coronal planes. IV contrast was administered without complication. Automated exposure control was utilized for the study. A dose lowering technique was utilized adhering to the principles of ALARA. CT DOSE: 1428.64 mGy.cm FINDINGS: Lung bases are unremarkable. No pneumatosis, free air or portal venous gas is present. Hypodense pancreatic body mass is similar to CT of January 28, 2023, measuring 7.1 x 3.5 cm. A stent within the distal duodenum and proximal jejunum is unchanged in position. There is no evidence for duodenal obstruction. No evidence for a bowel obstruction on this exam. Numerous hepatic lesions are similar to prior CT. Index segment 6 hepatic lesion on image 120 measures 2 cm. Splenomegaly is similar to prior exam. Multiple peritoneal implants are also similar to prior study. These measure up to 1.6 cm. There is trace ascites. 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 There is no hydronephrosis. Adrenal glands are unremarkable. No suspicious osseous lesions are present. Pelvic peritoneal implants are unchanged. There is no evidence for acute appendicitis. IMPRESSION: 1. No significant change since CT of January 28, 2023. The primary pancreatic mass and hepatic and peritoneal metastases are similar to prior CT. Trace ascites. 2. No change in position of a stent within the distal duodenum and proximal jejunum. No evidence for a bowel obstruction. 3. No new sites of metastatic disease identified. 4. Splenomegaly, similar to prior exam. ACT 112: Negative or not required by law. Electronically signed by: Delmar Trinidad M.D. 02/13/2023 6:55 AM Dictated: 02/13/23 0643 Transcribed: 02/13/23 0643
[2023-02-14] MEDS: CHECK fentaNYL PATCH PLACEMENT SCH ×3 (08:56→23:45)
[2023-02-14] MEDS: POLYETHYLENE (MIRALAX) 17 GM PACK PO SCH (08:57)
[2023-02-14] MEDS: PANTOprazole 40 MG TAB PO SCH ×2 (08:57→20:09)
[2023-02-14] MEDS: ENOXAPARIN INJ 40 MG/0.4 ML SYR SQ SCH (13:13)
--- NOTE | 2023-02-14 13:25 | Psychiatric Consultation ---
Date of Consultation February 14, 2023 Impression / Recommendations Impression 37 yo male with adjustment reaction to significant medical illness with anxiety and pain interfering with sleep. (1) Adjustment disorder with anxiety: Plan reviewed pros/cons of sleep aide vs. Remeron which may have more ongoing benefit for anxiety if requires ongoing RX. Reviewed combined risk of sedation with pain medications, need to avoid benzos given risk of respiratory depression with opiates. Dr. Valencia supports trial Remeron 7.5 mg hs. liaison to follow for support. Unclear what outpatient services patient may feel able to participate him given overriding medical. CPT Code Overall, I spent a total of 55 minutes with this case, including review of chart, direct evaluation of the patient, counseling the patient, ordering medication, coordination with nursing,coordination of care with hospitalist service, and documentation. Psych History Identifying Data 37 yo male from [place] with recent dx of metastatic pancreatic CA, admit for pain control. Consult by hospitalist service for "paranoia, racing thoughts and anxiety" Chief Complaint "I need to sleep". History of Present Illness as per liaison: Met with pt for initial consult. Consulted for . Pt was recently diagnosed last month with pancreatic cancer with mets to the liver. Pt elaborated on his paranoia. He stated he is scared of losing touch with reality and staying grounded. He is denying any AH/VH but states he has been having difficulty sleeping for the last three days. He states he has slept approximately 7 hours in the last three days. He states that he starts to fall asleep and he hears voices around him that are not there but it is when he is partly asleep. He reports having two panic attacks since his prognosis was given to him. He does have a history of anxiety but denies any history of psychotropic medication. He has taken Melatonin in the past for insomnia. He previously saw a therapist, Greta Medrano, in the past from 20'-22'. Denies previous inpatient in the past. Denies any current SI. He stated, "It's the opposite. I don't want to . I can't stand this pain. I am scared my pain is going to get so bad that I won't want to go through with it, but no I'm not suicidal and I don't want to ." Pt currently denies any substance use. His primary request from psych services is getting a medication prescribed that can help with both sleep and anxiety. He signed an ANTWAN for his PCP, Dr. Sandoval. Denies further needs at this time. Patient confirmed hx as per liaison, no psychotic symptoms, possible delirium symptoms upon falling asleep/awakening when sleep deprived/on narcotics. He denied dorothy paranoia, mainly describes anxiety about his medical condition and how to manage. His has "racing thoughts" meaning ruminative anxiety at bedtime that make it harder to sleep. He agained denied SI and denied access to weapons. He was quite tired and desired to discuss more "later" but was able to review informed consent for med trial. Case reviewed briefly with Dr. Valencia given LFT elevations and possible need for antidepressant/sleep aide. Allergies Allergy/AdvReac Type Severity Reaction Status Date / Time No Known Drug Allergies Allergy none Verified 02/06/23 07:14 Home Medications Medication Instructions Recorded Confirmed Type ergocalciferol (vitamin D2) 1,250 1,250 mcg PO Q7D 01/25/23 02/13/23 History mcg (50,000 unit) capsule levothyroxine 25 mcg capsule 25 mcg PO QAM 01/25/23 02/13/23 History linaclotide 145 mcg capsule 145 mcg PO DAILY PRN Constipation 01/25/23 02/13/23 History (Linzess) naloxegol 12.5 mg tablet (Movantik) 12.5 mg PO QAM #30 tabs 01/25/23 02/13/23 Rx naloxone 4 mg/actuation nasal spray 1 spray intranasal Q3M PRN opioid 01/25/23 02/13/23 Rx overdose #2 ea omeprazole 20 mg capsule,delayed 20 mg PO BID 01/25/23 02/13/23 History release ondansetron 4 mg disintegrating 4 mg PO Q6H PRN Nausea And Vomiting 01/25/23 02/13/23 History tablet polyethylene glycol 3350 17 17 g PO DAILY 01/25/23 02/13/23 History gram/dose oral powder (Miralax) prochlorperazine maleate 5 mg 5 mg PO Q6H PRN nausea and 01/25/23 02/13/23 Rx tablet vomiting #60 tabs fentanyl 25 mcg/hr transdermal 1 patch transdermal Q72H very 02/01/23 02/13/23 Rx patch severe cancer pain 1 month #10 ea oxycodone 15 mg tablet 15 mg PO Q4H PRN severe cancer 02/01/23 02/13/23 Rx pain breakthrough 1 month #120 tabs acetaminophen 500 mg tablet 1,000 mg PO BID PRN Pain 02/06/23 02/13/23 History Patient History Medical History Insomnia due to psychological stress Paranoia Hypothyroidism History of COVID-19 01/19/23, tested + [facility], asymptomatic>"never developed any symptoms either" Constipation 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 Burton History of esophagogastroduodenoscopy (EGD) Hx of lymph node biopsy node removed near throat Social History Smoking Status: Never smoker Second Hand Exposure: No; Do You Dip or Chew Tobacco: No; Hx Alcohol Use: No Hx Substance Use: No Preferred Language: Bermudian Communication Ability: Effective Wet End Operator Required: No Beliefs That Will Affect Care: None Current Living Situation: Spouse Feels Safe at Home: Yes Assistive Devices: None Physical Exam Psychiatric: Orientation: + not alert (tired appearing) Apperance: appropriately groomed Eye Contact: + fair eye contact Motor Behavior: no abnormal motor movements Speech: normal rate/rhythm/volume of speech Affect: + blunted affect Mood: + anxious mood Thought Process: goal directed thought process Thought Content: reality based without delusions Suicidal Thoughts: denies suicidal thoughts Homicidal Thoughts: denies homicidal thoughts Hallucinations: no auditory hallucinations and no visual hallucinations Cognition: language grossly intact; + attention not intact Vital Signs (Past 24 Hours): Last Vital Signs Temp 36.7 C 02/14/23 11:32 Pulse 72 02/14/23 11:32 Resp 16 02/14/23 11:32 BP 103/65 02/14/23 11:32 Pulse Ox 96 02/14/23 11:32 O2 Del Method Room Air 02/14/23 11:32 Review of Systems All systems reviewed & are unremarkable except as noted in HPI & below Results & Data (PSY) Laboratory Results 02/14/23 Range/Units 05:37 WBC 4.51 L (4.8-10.8) K/ul RBC 4.09 L (4.70-6.10) M/uL Hgb 12.4 L (14.0-18.0) g/dl Hct 35.5 L (42.0-52.0) % MCV 86.8 (80.0-100.0) fL MCH 30.3 (25.0-34.0) pg MCHC 34.9 (32.0-36.0) g/dL RDW Std Deviation 40.7 (36.4-46.3) fL RDW Coeff of Dmitriy 12.7 (11.5-14.5) % Plt Count 112 L (130-400) K/uL MPV 12.5 H (9.4-12.4) fL PT 12.9 H (9.0-12.0) Seconds INR 1.2 H (0.9-1.1) Sodium 137 (136-145) mmol/L Potassium 3.7 (3.5-5.1) mmol/L Chloride 101 (98-107) mmol/L Carbon Dioxide 29 (21-32) mmol/L Anion Gap 7 (3-11) BUN 12 (6-23) mg/dl Creatinine 0.53 L (0.6-1.4) mg/dl Est Cr Clr Drug Dosing 221.3 ml/min Est GFR ( Amer) > 150.0 ml/min Est GFR (Non-Af Amer) 137.1 ml/min BUN/Creatinine Ratio 22.6 H (10-20) Glucose 143 H (70-99(Fasting)) mg/dl Calcium 9.4 (8.6-10.3) mg/dl Magnesium 1.9 (1.7-2.4) mg/dl Total Bilirubin 2.3 H (0.2-1.0) mg/dl AST 72 H (13-39) U/L ALT 137 H (7-52) U/L Alkaline Phosphatase 432 H (34-104) U/L Total Protein 6.1 (6.0-8.3) gm/dl Albumin 3.7 (3.4-5.0) gm/dl Globulin 2.4 L (2.5-4.0) gm/dl Albumin/Globulin Ratio 1.5 (0.9-2) Medications Administered Enoxaparin Sodium (Enoxaparin Inj 40 Mg/0.4 Ml Syr) 40 mg SQ Q24H [facility] Stop: 03/15/23 12:59 Last Admin: 02/14/23 13:13 Dose: 40 mg Documented By: Admin: 02/13/23 17:17 Dose: 40 mg Documented By: GARY Fentanyl (Fentanyl 50 Mcg/Hr Tdsy) 50 mcg TD Q3D [facility] Stop: 02/27/23 12:14 Last Admin: 02/13/23 12:26 Dose: 50 mcg Documented By: TABLE MOUNTAIN Prochlorperazine 5 mg/ Syringe 5 mls @ 5 mls/min IV Q6H PRN PRN Reason: Nausea And Vomiting Stop: 03/15/23 10:51 Last Admin: 02/14/23 12:52 Dose: 5 mls/min Documented By: Admin: 02/14/23 06:00 Dose: 5 mls/min Documented By: Admin: 02/13/23 21:20 Dose: 5 mls/min Documented By: Admin: 02/13/23 11:24 Dose: 5 mls/min Documented By: TABLE MOUNTAIN Levothyroxine Sodium (Levothyroxine Sodium 25 Mcg Tablet) 25 mcg PO DAILYBB [facility] Stop: 03/16/23 06:29 Last Admin: 02/14/23 05:40 Dose: 25 mcg Documented By: ZARA Flores (Check Fentanyl Patch Placement) 1 each N/A QS [facility] Stop: 03/15/23 15:59 Last Admin: 02/14/23 08:56 Dose: 1 each Documented By: Admin: 02/13/23 23:20 Dose: 1 each Documented By: Admin: 02/13/23 17:17 Dose: 1 each Documented By: GARY Singletarycellaneous (Fentanyl Patch Remove & Waste) 1 each N/A Q3D [facility] Stop: 03/15/23 12:13 Last Admin: 02/13/23 13:54 Dose: Not Given Documented By: TABLE MOUNTAIN Miscellaneous (Movantik~Order Awaiting Action) 1 each N/A QS [facility] Stop: 03/15/23 15:59 Last Admin: 02/14/23 08:56 Dose: Not Given Documented By: Admin: 02/13/23 23:21 Dose: Not Given Documented By: Admin: 02/13/23 22:57 Dose: Not Given Documented By: ARR Morphine Sulfate (Morphine Sulfate 4 Mg/Ml 1 Ml Carp\\Vial) 4 mg IV Q4H PRN PRN Reason: Pain (5+) Stop: 02/27/23 10:51 Last Admin: 02/14/23 05:44 Dose: 4 mg Documented By: Admin: 02/13/23 21:21 Dose: 4 mg Documented By: Admin: 02/13/23 11:24 Dose: 4 mg Documented By: TABLE MOUNTAIN Pantoprazole Sodium (Pantoprazole 40 Mg Tab) 40 mg PO BID [facility] Stop: 03/15/23 20:59 Last Admin: 02/14/23 08:57 Dose: 40 mg Documented By: Admin: 02/13/23 21:19 Dose: 40 mg Documented By: ACC Polyethylene Glycol (Polyethylene (Miralax) 17 Gm Pack) 17 gm PO DAILY [facility] Stop: 03/16/23 08:59 Last Admin: 02/14/23 08:57 Dose: 17 gm Documented By: JEREMY Coding Level of Care Code 42396 [facility] Intl Hosp Care Lvl 2 Diagnoses Adjustment disorder with anxiety F43.22
--- NOTE | 2023-02-14 13:38 | Hospitalist Progress Note ---
Date of Service February 14, 2023 Assessment & Plan (1) Cancer related pain: Plan: Aminal pain with metastatic adenocarcinoma of the pancreas, mets to liver Sites of pain have not changed but continues to worsen. Has had slight up titration of phenyl patch as outpatient at 37.5 mcg, has had difficulty with insurance authorization see palliative care note Improved on fentanyl 50 mcg and oxycodone IR. Patient reports he takes his twice daily at home. Did see pain management this morning who recommended MS IR every 4 hours as needed and to follow for requirement/oral tolerability with IV morphine as backup. Has not required IV breakthrough dosing. Discussed with palliative care who is working with case management to help obtain authorization for his current pain regimen. Appreciate assistance Narcan if needed for narcosis/sedation none is present at time of morning exam Psychiatry consulted. With adjustment disorder and anxiety with predominant barrier being sleepy. Recommended avoiding benzodiazepines especially given underlying opiate use. Discussed with psychiatry, Remeron 7.5 mg at bedtime trial reasonable. Will trial this starting tonight (2) Elevated LFTs: Plan: -All LFT's increased compared to 01/28 -Trace scleral icterus on exam -CT of the abd/pelvis w/IV con without signs of biliary obstruction with duodenal stent in place -Likely due to his known metastatic pancreatic caner with mets to the liver BMP trended (3) Pancreatic cancer metastasized to liver: Plan: Hematology oncology consulted.Hematology oncology consulted. Disease, institution of chemotherapy as inpatient/palliative chemotherapy deferred. They will continue to follow (4) Hypothyroidism: Plan: -Continue levothyroxine (5) GERD (gastroesophageal reflux disease): Plan: -Continue BID PPI Admission and Anticipated Discharge Date Admission Date: February 13, 2023 Subjective Luke is seen at bedside this morning. He is sleeping but awakens easily and does not appear narcotize. Reports his pain has now improved to 4/5 in his abdomen, was 78 yesterday with a peak at around 8. He feels this is improved significantly with the increase of his Centinel patch to 50. He had some nausea this morning which improved with Zofran. Feels his pain is still present but tolerable. Has not had a bowel movement today. No fever, chills, sweats. No chest pain or chest pressure Physical Exam Physical Exam: General: A&Ox3. NAD. Cooperative. HEENT: Atraumatic, normocephalic. Vision/hearing intact Pulm: CTAB A&P. -wheezes, -rales, -rhonchi. Symmetrical chest rise. No increased work of breathing. No respiratory distress. Cardiac: RRR, -mrg. Radial pulses intact and symmetrical. Abdominal: No involuntary guarding. Upper quadrant/epigastric tenderness Results & Data Results & Data Vital Signs (Past 12 Hours) Vital Signs Temp Pulse Pulse Pulse Resp BP Pulse Ox 02/14/23 11:32 36.7 C 72 16 103/65 96 02/14/23 07:00 76 02/14/23 04:06 36.4 C L 116 H 24 121/80 97 O2 Del Method 02/14/23 11:32 Room Air 02/14/23 07:00 02/14/23 04:06 Room Air PG Care Time/CCT Total # of Minutes Spent Total Time Spent with Patient: Total time spent is greater than 50% in coordination of care (as documented) at patient's floor/unit and/or counseling patient: Coding Level of Care Code 21059 SUB INP/OBS CARE 3/50MIN Diagnoses Cancer related pain G89.3 Elevated LFTs R79.89 Pancreatic cancer metastasized to liver C25.9; C78.7 Hypothyroidism E03.9 GERD (gastroesophageal reflux disease) K21.9
[2023-02-14] MEDS ORDERED: PROMETHAZINE HCL 12.5 MG/10 ML UDP PO PRN (14:08)
[2023-02-14] MEDS ORDERED: MIRTAZAPINE TAB 15 MG TAB PO SCH (21:00)
[2023-02-14] MEDS: MoRPHine SULFATE IR 15 MG TAB (IMMEDIATE RELEASE) PO PRN (23:46)
[2023-02-15] MEDS: LEVOTHYROXINE SODIUM 25 MCG TABLET PO SCH (05:31)
[2023-02-15 06:41] LABS: Hematocrit (blood only) 40.1 % (42.0-52.0); Hemoglobin 13.3 g/dl (14.0-18.0); Mean Corpuscular Hemoglobin 29.6 pg (25.0-34.0); Mean Corpuscular Hgb Conc 33.2 g/dL (32.0-36.0); Mean Corpuscular Volume 89.3 fL (80.0-100.0); Mean Platelet Volume 12.2 fL (9.4-12.4); Platelet Count 139 K/uL (130-400); RDW Standard Deviation 42.9 fL (36.4-46.3); Red Blood Count 4.49 M/uL (4.70-6.10); White Blood Count 5.82 K/ul (4.8-10.8)
[2023-02-15 06:56] LABS: Alanine Aminotransferase 148 U/L (7-52); Albumin Globulin Ratio 1.6 (0.9-2); Albumin Level 3.9 gm/dl (3.4-5.0); Alkaline Phosphatase 538 U/L (34-104); Anion Gap 8 (3-11); Aspartate Aminotransferase 90 U/L (13-39); BUN Creatinine Ratio 17.3 (10-20); Bilirubin,Total 2.7 mg/dl (0.2-1.0); Blood Urea Nitrogen 9 mg/dl (6-23); Calcium 9.5 mg/dl (8.6-10.3); Carbon Dioxide 29 mmol/L (21-32); Chloride 101 mmol/L (98-107); Est GFR (African American) > 150.0 ml/min; Est GFR (Non-African American) 138.2 ml/min; Globulin 2.4 gm/dl (2.5-4.0); Glucose 142 mg/dl (70-99(Fasting)); Potassium 3.5 mmol/L (3.5-5.1); Sodium 138 mmol/L (136-145); Total Protein 6.3 gm/dl (6.0-8.3)
[2023-02-15] MEDS: CHECK fentaNYL PATCH PLACEMENT SCH ×3 (08:49→23:02)
[2023-02-15] MEDS: PANTOprazole 40 MG TAB PO SCH ×2 (08:50→20:31)
[2023-02-15] MEDS: POLYETHYLENE (MIRALAX) 17 GM PACK PO SCH (08:50)
[2023-02-15] MEDS: MoRPHine SULFATE IR 15 MG TAB (IMMEDIATE RELEASE) PO PRN ×2 (09:22→18:40)
--- NOTE | 2023-02-15 09:25 | Pain Management Progress Note ---
Date of Service February 15, 2023 Assessment & Plan (1) Cancer related pain: (2) Pancreatic cancer metastasized to liver: (3) Paranoia: (4) Insomnia due to psychological stress: Plan 1. Would recommend patient maintain fentanyl at 50 mcg dosing at this time 2. Patient was encouraged to utilize MS IR 15 mg for breakthrough pain today to assess efficacy. Consider titrating to 30 mg with poor pain control with tolerability. Patient may reserve IV morphine for backup. 3. Patient will continue with Remeron per behavioral health. 4. Patient will continue with MiraLAX upon this admission. He was encouraged to initiate his home Movantik therapy which was providing benefit with bowel movements in the outpatient setting. 5. Pain service will continue to defer celiac plexus block at this time Admission and Anticipated Discharge Date Admission Date: February 13, 2023 Subjective Mr. Dunbar is seen in follow-up regarding his cancer related pain involving his abdominal location. Patient remains on fentanyl 50 mcg patch applied to the right deltoid. He was initiated on oral MS IR 15 mg every 4 hours yesterday. Utilized 1 dose last evening in which he reported minimal notable relief of his abdominal pain. He believes he did tolerate the medication although had taken Remeron a few hours prior which did seem to improve his sleep last evening. He reports his current pain is a 6/10 in the abdominal location. He was reporting some difficulty getting comfortable sleeping last evening due to his pain involving the abdomen and thoracic region/right shoulder. He feels some abdominal fullness. He has not had bowel movement over the past 2 days. He was able to consume a little bit of breakfast this morning. He has no significant nausea. He was evaluated by behavioral health who did initiate Remeron 7.5 mg nightly last evening. Patient has no further constitutional complaints. Plan of care discussed with Dr. Fung. Physical Exam Physical Exam: General: Patient sleeping upon entering the room. Patient easily arousable. Patient in no acute distress. Speech and thought process appropriate. Mood and affect appropriate. Cognition intact. Extremities: Fentanyl patch 50 mcg present on right deltoid. Abdomen: Soft and nondistended. No organomegaly. Bowel sounds active. Some minimal generalized tenderness to palpation over the abdominal location which is nonfocal. Neurologic: Cranial nerves grossly intact. Ambulatory function not witnessed.
[2023-02-15] MEDS ORDERED: fentaNYL 50 MCG/HR TDSY TD SCH (09:30)
[2023-02-15] MEDS: PALONOSETRON 0.25 MG in SYRINGE 0 ML IV SCH (13:12)
[2023-02-15] MEDS: LACTATED RINGER'S 1,000 ML IV SCH (13:12)
[2023-02-15] MEDS: ENOXAPARIN INJ 40 MG/0.4 ML SYR SQ SCH (13:17)
[2023-02-15] MEDS: DULoxetine HCL 30 MG CAP PO SCH (13:28)
--- NOTE | 2023-02-15 15:10 | CT Scan Report ---
CT ANGIOGRAPHY OF THE CHEST, PULMONARY EMBOLUS PROTOCOL CLINICAL HISTORY: Metastatic pancreatic cancer. Shortness of breath. Evaluate for pulmonary embolus. COMPARISON STUDY: Chest radiograph February 06, 2023. TECHNIQUE: Following IV administration of 119 mL of Optiray, helical axial images of the chest were o btained utilizing the pulmonary embolus protocol. Maximal intensity projections and sagittal and cor onal reformats were viewed on an independent 3D workstation. IV contrast was administered without co mplication. Automated exposure control was utilized for the study. A dose lowering technique was ut ilized adhering to the principles of ALARA. CT DOSE: 834.08 mGy.cm FINDINGS: No pulmonary emboli are identified. There is no thoracic aortic dissection. Size of the he art is normal. There is no pericardial effusion. The central airways are patent. No consolidation is identified to suggest pneumonia. Ground glass opacities and linear densities within the lungs reflect atelectasis. There are no suspicious lesions within the bony thorax. Numerous hepatic metastases are similar to CT of February 13, 2023. Peritoneal implants are again noted. Splenomegaly is unchanged. Primary pancreatic lesion is partially imaged on this exam. There is trace perihepatic ascites, uncha nged. IMPRESSION: 1. No pulmonary emboli identified. 2. No acute intrathoracic findings. No evidence of metastatic disease within the chest. 3. No change in hepatic and peritoneal metastases and the partially visualized primary pancreatic les ion. ACT 112: Negative or not required by law. Electronically signed by: Delmar Trinidad M.D. 02/15/2023 3:07 PM
--- NOTE | 2023-02-15 16:28 | Hematology/Oncology Prog Note ---
Date of Service February 15, 2023 Assessment & Plan (1) Pancreatic cancer metastasized to liver: (2) Cancer related pain: Plan Appears to be doing a lot better from pain control standpoint. Scheduled for cycle 1 of chemotherapy with FOLFIRINOX on 02/20/2023 Inpatient chemotherapy not feasible due to 5-FU 46-hour pump. Also not necessary as chemotherapy would not improve pain immediately and pain appears well-controlled at this time. This was discussed with patient and his in detail. He had multiple questions which indicated were answered to their satisfaction. Will hopefully get discharged in the next 24 to 48 hours and start chemotherapy next week as scheduled. Admission and Anticipated Discharge Date Admission Date: February 13, 2023 Subjective Doing a lot better today on current pain regimen. States that pain is currently 3 out of 10. Results & Data Vital Signs (Past 12 Hours) Vital Signs Temp Pulse Pulse Resp BP Pulse Ox O2 Del Method 02/15/23 15:10 36.3 C L 93 H 16 117/82 96 Room Air 02/15/23 15:00 90 02/15/23 10:58 36.6 C 91 H 14 121/75 95 Room Air 02/15/23 10:26 90 02/15/23 06:47 36.8 C 88 16 121/75 95 Room Air
--- NOTE | 2023-02-15 18:35 | Palliative Care Consultation ---
Date of Consultation February 15, 2023 Assessment & Plan (1) Cancer related pain: Patrick is having improved cancer related pain relief with transdermal fentanyl 50 mics per hour every 72 hours. He is using oral morphine both liquid and tablet form for breakthrough pain. An IV morphine doses ordered as a backup when oral medications are not enough and he notes that he has only had to use that once or twice. His insurance has been difficult to work with in terms of obtaining prior authorization for his opioid regimen to relieve his very severe cancer related pain. This morning we were notified that the oral oxycodone was approved after we submitted 02/23 request for prior authorization (this was her fourth appeal) but he will likely now need another prior Auth submitted for the morphine. Additionally, we are awaiting their decision for approval on the transdermal fentanyl patch. I discussed with Patrick the option of obtaining some financial support from [employer] funds and told him that I would notify the cancer navigator for further assistance. He updated me at this time that through his employer, he has a program called the [employer] which provides employees with designated financial support for medical expenses. He has received a visa gift card for $2500 and shares that another visa card for $7500 is on its [address], these findings are through the [employer] program and will be used to offset medical expenses. He is very open when he states that he can use these funds to help pay for any medications he may need [id number]. He used the card recently to purchase his oxycodone [id number] because the prior authorization had still not been approved. He is comfortable with the plan for discharge from the hospital and to go case picker his medications at the pharmacy and if necessary will pay [id number] using the [employer] Visa. (2) Adjustment disorder with anxiety: He was recently started on Remeron to help with his anxiety. However he is having a multifaceted complex cancer pain as well as changes in his mood with depression and anxiety. Because his pain includes a neuropathic element as well as depression and anxiety, I have stopped the Remeron and initiate duloxetine 30 mg daily. We will continue 30 mg daily for 2 weeks with a plan to titrate dose to 60 mg at that time. Current cancer research data demonstrates that the use of duloxetine compared with placebo resulted in greater reduction of pain for cancer patients. Additionally, duloxetine can help reduce the emotional symptom burden and there has been data to support that it is particularly effective when used in combination for methadone. Patient at this time does not want to change his pain regimen from his transdermal fentanyl and oral morphine, however, should his pain amplifier remain poorly controlled a plan to switch him to oral methadone in the future is not unrealistic particularly since it can work in a synergistic manner with duloxetine for cancer related pain and emotional symptom burden relief. 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 I have sent in the prescriptions for his transdermal fentanyl 50 mics per hour, oral morphine 15 mg tablets for breakthrough pain, and oral duloxetine 30 mg tablets. I sent these into his outpatient pharmacy and I have notified the patient of the same. I have also updated the [facility] prior Auth team in case the pharmacy sends a request in for prior authorization the patient is aware that the medications have been ordered and he is able to pick them up and pay for them [id number] using his support through his [employer]. I have updated the primary team as well. * Patient advised that I will be off tomorrow and away through the holiday weekend however I am available by pager and can assist as needed for continued pain and symptom management. He has a follow-up appoint with me already scheduled for February 22 and outpatient palliative medicine clinic, and for now we plan to keep this appointment. As long as he is discharged this weekend, he should be able to keep his February 20 appointment and CCP for cycle 1 of FOLFIRINOX. Thank you for allowing us to participate in the ongoing care of this patient. Please don't hesitate to call or page with any additional concerns. Dr. Antonietta Manzano DNP Director, Palliative Care History of Present Illness Reason for Consultation: cancer pain and symptom mgt Attending Physician: Sergio Shay History of Present Illness Patrick andersen is a 37-year-old male well-known to me from outpatient palliative medicine clinic. He was admitted 02/13/2023 with uncontrolled and worsening cancer related pain. He has a new diagnosis of metastatic pancreatic cancer for which 5-FU therapy has been planned, first day of chemotherapy is scheduled in the [facility]CP infusion suite for February 20, 2023. He presented with uncontrolled cancer related pain that started in the mid to lower abdominal region with radiation into his low back. He was trying to control his pain with his oral regimen at home but it was worsening and he began to feel increasing nausea and vomiting while his ongoing radiating pain to the right shoulder. He denies any chest pain or acute shortness of breath. In addition to his uncontrolled cancer pain, Patrick also reports a significant and mounting anxiety, depression and an overwhelming sense of "things are not really going to work out, I know the statistics and the survival rates for this type of cancer but nobody really wants to talk about it in depth." He states that his is trying to stay optimistic with a focus on his chemotherapy will bring him into remission. For cancer related pain he has been using transdermal fentanyl as well as oral oxycodone. There has been tremendous difficulty obtaining prior authorization and approval for his opioid cancer pain related regimen from his insurance company which is continued to refuse coverage for reasons of "the amount of medication being requested exceeds daily morphine equivalents." Multiple appeals have been submitted, currently we are on our fourth submitted appeal and have made numerous attempts to try and speak to someone live at the [facility], however nurses have been on hold for upwards of 4 hours a day and unable to reach a live person at the patient's insurance company. After the fourth submission for prior authorization, we were notified this morning that they issued approval for the oral oxycodone. Unfortunately they still not have made a decision with regards to the transdermal fentanyl. In the interim since admission, his transdermal fentanyl dose has been increased to 50 mcg every 72 hours and because he began to feel like he was hallucinating on the oral oxycodone, he was switched to oral morphine 15 mg tablets for breakthrough pain. He reports that he has had reasonable pain control with the oral morphine for breakthrough and has not felt as sedated in the no hallucinations. He feels it might be best for him to be maintained on oral morphine for breakthrough pain at this time. Patrick follows with Dr. Rascon in the [facility] for his cancer related care. He is scheduled to start cycle 1 chemotherapy with FOLFIRINOX on February 20, 2023. It is noted that inpatient chemotherapy is not feasible because 5-FU is a 46-hour pump. It is also not medically necessary at this time because chemotherapy will not improve his pain immediately and this has been discussed directly with him and his by oncology. It is hopeful that he will be discharged in the next 24 to 48 hours and be able to keep his appointment and CCP on 02/20/2023 to start cycle 1 of FOLFIRINOX. At the time of my visit, Patrick is lying on his left side in bed. He appears tired but it is otherwise awake alert and cooperative. He tells me that he feels his pain has improved and he is comfortable on the current regimen. He is concerned about the hallucinations he felt with the increased dose of oxycodone and for now wants to stay on oral morphine for breakthrough pain. He also adds his concerns about his anxiety and depression. He is seeing a counselor for ongoing cognitive therapy but also feels that some medication may be warranted at this time. He is also struggling with severe nausea and vomiting. His oral intake has been moderate and he is largely tolerating smaller amounts of bland foods such as Jell-O, Slovenian ices, apple juice and occasionally a fruit flavored breeze nutritional supplement. A Jell-O with additional protein has been added to his diet to help assure that he gets enough protein throughout the day. He feels that if his nausea and vomiting were better controlled he would be able to tolerate taking in more p.o. Currently he has been getting Compazine and occasional ondansetron without substantial relief. Allergies Allergy/AdvReac Type Severity Reaction Status Date / Time No Known Drug Allergies Allergy none Verified 02/06/23 07:14 Home Medications Medication Instructions Recorded Confirmed Type ergocalciferol (vitamin D2) 1,250 1,250 mcg PO Q7D 01/25/23 02/13/23 History mcg (50,000 unit) capsule levothyroxine 25 mcg capsule 25 mcg PO QAM 01/25/23 02/13/23 History linaclotide 145 mcg capsule 145 mcg PO DAILY PRN Constipation 01/25/23 02/13/23 History (Linzess) naloxegol 12.5 mg tablet (Movantik) 12.5 mg PO QAM #30 tabs 01/25/23 02/13/23 Rx naloxone 4 mg/actuation nasal spray 1 spray intranasal Q3M PRN opioid 01/25/23 02/13/23 Rx overdose #2 ea omeprazole 20 mg capsule,delayed 20 mg PO BID 01/25/23 02/13/23 History release ondansetron 4 mg disintegrating 4 mg PO Q6H PRN Nausea And Vomiting 01/25/23 02/13/23 History tablet polyethylene glycol 3350 17 17 g PO DAILY 01/25/23 02/13/23 History gram/dose oral powder (Miralax) prochlorperazine maleate 5 mg 5 mg PO Q6H PRN nausea and 01/25/23 02/13/23 Rx tablet vomiting #60 tabs acetaminophen 500 mg tablet 1,000 mg PO BID PRN Pain 02/06/23 02/13/23 History duloxetine 30 mg capsule,delayed 30 mg PO DAILY ca related 02/15/23 Rx release depression/anxiety & adjunct pain mgt 1 month #30 caps fentanyl 50 mcg/hr transdermal 1 patch transdermal Q72H very 02/15/23 Rx patch severe cancer pain 1 month #10 ea morphine 15 mg immediate release 15 mg PO Q4H PRN breakthru cancer 02/15/23 Rx tablet pain 1 month #120 tabs Patient History Medical History Insomnia due to psychological stress Paranoia Hypothyroidism History of COVID-19 01/19/23, tested + [facility] ER, asymptomatic>"never developed any symptoms either" Constipation 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 Burton History of esophagogastroduodenoscopy (EGD) Hx of lymph node biopsy node removed near throat Social History Smoking Status: Never smoker Second Hand Exposure: No; Do You Dip or Chew Tobacco: No; Tobacco Cessation Education Requested by Patient: No Hx Alcohol Use: No Hx Substance Use: No Preferred Language: Maori Communication Ability: Effective Mixed Crop [employer] Required: No Beliefs That Will Affect Care: None Current Living Situation: Spouse Other Information That Helps Us Care for You: No Feels Safe at Home: Yes Safety Concerns: Feels Safe At This Time Assistive Devices: None Review of Systems Review of Systems: All systems reviewed & are unremarkable except as noted in Subjective Physical Exam Physical Exam: Patrick is seen at the bedside, lying on his left side. He was able to easily switch positions from lying to sitting at the bedside. There is no additional family present. He is normocephalic and atraumatic. Pupils are equal, round and reactive to light. Extraocular movements are intact. His neck is supple and there is no stridor. Oral mucosa slightly dry. Dentition is intact. He does not have any open lesions on his oral mucosa or lips. His respiratory effort is within normal limits. He is noted to be tachycardic with an apical rate of 125. Review of his telemetry data indicates that even with minimal exertion from his bed to the bathroom he became tachycardic into the 140s. Now at rest he is hovering in the 120s. He denies any shortness of breath or chest pain. Abdomen is tender to palpation bowel sounds are present. He has some generalized weakness but strength is equal bilaterally. He is able to follow commands. He is awake, alert and oriented x 3. His skin is pale but warm. There is no clubbing, cyanosis or gross erythema. He has an access Chemo-Port implanted on the chest wall. This has not been accessed. Results & Data Vital Signs (Past 12 Hours) Vital Signs Temp Pulse Pulse Resp BP Pulse Ox O2 Del Method 02/15/23 15:10 36.3 C L 93 H 16 117/82 96 Room Air 02/15/23 15:00 90 02/15/23 10:58 36.6 C 91 H 14 121/75 95 Room Air 02/15/23 10:26 90 02/15/23 06:47 36.8 C 88 16 121/75 95 Room Air Laboratory Results Labs and imaging data were reviewed in detail, see HPI Diagnostic Findings Labs and imaging data were reviewed in detail, see HPI PG Care Time/CCT Total # of Minutes Spent Total Time Spent: 90 Total Time Spent with Patient: Total time spent is greater than 50% in coordination of care (as documented) at patient's floor/unit and/or counseling patient: I spent 90 minutes overall addressing this very complex case: 20 min in medical data review/discussion with referring provider(s) and/or preparation for the visit 15 min in direct interaction with the patient/exam 15 min in Advance Care Planning/Goals of Care discussions as detailed above in note (must be >16min) 15 min in subsequent review and synthesis of assessment and plan 25 min communicating with other providers regarding the patient's case: Primary team, nursing, oncology. 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
--- NOTE | 2023-02-15 20:50 | Hospitalist Progress Note ---
Date of Service February 15, 2023 Assessment & Plan (1) Cancer related pain: Plan: Aminal pain with metastatic adenocarcinoma of the pancreas, mets to liver Sites of pain have not changed but continues to worsen. Has had slight up titration of phenyl patch as outpatient at 37.5 mcg, has had difficulty with insurance authorization see palliative care note Improved on fentanyl 50 mcg and oxycodone IR. Patient reports he takes his twice daily at home. Did see pain management this morning who recommended MS IR every 4 hours as needed and to follow for requirement/oral tolerability with IV morphine as backup. Has not required IV breakthrough dosing. Discussed with palliative care who is working with case management to help obtain authorization for his current pain regimen. Appreciate assistance Narcan if needed for narcosis/sedation none is present at time of morning exam Psychiatry consulted. With adjustment disorder and anxiety with predominant barrier being sleepy. Recommended avoiding benzodiazepines especially given underlying opiate use. Discussed with psychiatry, Remeron 7.5 mg at bedtime trial reasonable. Pain appears better controlled today. HR though is elevated, may be due to dehydration vs pulmonary emboli. will obtain a ct chest. (2) Elevated LFTs: Plan: -All LFT's increased compared to 01/28 -Trace scleral icterus on exam -CT of the abd/pelvis w/IV con without signs of biliary obstruction with duodenal stent in place -Likely due to his known metastatic pancreatic caner with mets to the liver BMP trended (3) Pancreatic cancer metastasized to liver: Plan: Hematology oncology consulted.Hematology oncology consulted. Disease, institution of chemotherapy as inpatient/palliative chemotherapy deferred. They will continue to follow (4) Hypothyroidism: Plan: -Continue levothyroxine (5) GERD (gastroesophageal reflux disease): Plan: -Continue BID PPI Admission and Anticipated Discharge Date Admission Date: February 13, 2023 Subjective Patient reports no new symptoms. Review of Systems Review of Systems: All systems reviewed & are unremarkable except as noted in HPI & below Physical Exam Physical Exam: General: A&Ox3. NAD. Cooperative. HEENT: Atraumatic, normocephalic. Vision/hearing intact Pulm: CTAB A&P. -wheezes, -rales, -rhonchi. Symmetrical chest rise. No increased work of breathing. No respiratory distress. Cardiac: RRR, -mrg. Radial pulses intact and symmetrical. Abdominal: No involuntary guarding. Upper quadrant/epigastric tenderness Results & Data Results & Data Vital Signs (Past 12 Hours) Vital Signs Temp Pulse Pulse Resp BP Pulse Ox O2 Del Method 02/15/23 20:21 36.6 C 91 H 16 110/69 96 Room Air 02/15/23 15:10 36.3 C L 93 H 16 117/82 96 Room Air 02/15/23 15:00 90 02/15/23 10:58 36.6 C 91 H 14 121/75 95 Room Air 02/15/23 10:26 90 PG Care Time/CCT Total # of Minutes Spent Total Time Spent with Patient: Total time spent is greater than 50% in coordination of care (as documented) at patient's floor/unit and/or counseling patient: Coding Level of Care Code 05169 SUB INP/OBS CARE 3/50MIN Diagnoses Cancer related pain G89.3 Elevated LFTs R79.89 Pancreatic cancer metastasized to liver C25.9; C78.7 Hypothyroidism E03.9 GERD (gastroesophageal reflux disease) K21.9 Time Spent (min) 50 Comment reviewed chart, discussed with specialists
[2023-02-16] MEDS: LACTATED RINGER'S 1,000 ML IV SCH (02:15)
[2023-02-16] MEDS: MoRPHine SULFATE IR 15 MG TAB (IMMEDIATE RELEASE) PO PRN ×3 (04:35→13:30)
[2023-02-16] MEDS: LEVOTHYROXINE SODIUM 25 MCG TABLET PO SCH (05:30)
[2023-02-16] MEDS ORDERED: NALOXEGOL OXALATE 12.5 MG PO SCH (06:30)
[2023-02-16 08:02] LABS: Hematocrit (blood only) 36.3 % (42.0-52.0); Hemoglobin 12.5 g/dl (14.0-18.0); Mean Corpuscular Hgb Conc 34.4 g/dL (32.0-36.0); Mean Corpuscular Volume 87.3 fL (80.0-100.0); Mean Platelet Volume 12.1 fL (9.4-12.4); Platelet Count 127 K/uL (130-400); RDW Coefficient of Variation 12.9 % (11.5-14.5); RDW Standard Deviation 41.2 fL (36.4-46.3); Red Blood Count 4.16 M/uL (4.70-6.10); White Blood Count 6.05 K/ul (4.8-10.8)
[2023-02-16 08:16] LABS: Alanine Aminotransferase 192 U/L (7-52); Albumin Globulin Ratio 1.7 (0.9-2); Albumin Level 3.8 gm/dl (3.4-5.0); Alkaline Phosphatase 526 U/L (34-104); Anion Gap 6 (3-11); Aspartate Aminotransferase 107 U/L (13-39); BUN Creatinine Ratio 13.6 (10-20); Bilirubin,Total 3.2 mg/dl (0.2-1.0); Blood Urea Nitrogen 8 mg/dl (6-23); C Reactive Protein 2.57 mg/dl (0-0.5); Calcium 9.3 mg/dl (8.6-10.3); Carbon Dioxide 31 mmol/L (21-32); Chloride 99 mmol/L (98-107); Creatinine Clr Calc Pharmacy 198.2 ml/min; Est GFR (African American) > 150.0 ml/min; Est GFR (Non-African American) 131.2 ml/min; Globulin 2.3 gm/dl (2.5-4.0); Glucose 167 mg/dl (70-99(Fasting)); Iron 72 mcg/dl (35-175); Phosphorus 3.8 mg/dl (2.5-4.9); Potassium 3.9 mmol/L (3.5-5.1); Sodium 136 mmol/L (136-145); Total Iron Binding Cap Calc 319 mcg/dl (250-450); Total Protein 6.1 gm/dl (6.0-8.3); Transferrin (FE) Percent Satur 23 % (20-50); Unsaturated Iron Binding Cap 247 mcg/dl (155-355)
[2023-02-16] MEDS: DULoxetine HCL 30 MG CAP PO SCH (08:34)
[2023-02-16] MEDS: PANTOprazole 40 MG TAB PO SCH (08:34)
[2023-02-16] MEDS: CHECK fentaNYL PATCH PLACEMENT SCH (08:34)
[2023-02-16] MEDS: PALONOSETRON 0.25 MG in SYRINGE 0 ML IV SCH (08:35)
[2023-02-16] MEDS: POLYETHYLENE (MIRALAX) 17 GM PACK PO SCH (08:37)
--- NOTE | 2023-02-16 13:16 | Discharge Summary ---
Date of Service February 16, 2023 Admission HPI Per Admitting Provider Patrick is a 37 year old male with a PMH significant for recently diagnosed adenocarcinoma of the pancreas with metastases to the liver S/P duodenal stent placement with cancer related pain, hypothyroidism, who presented to the [facility] ED on 02/13 with uncontrolled cancer-related pain to the abdomen and back. He was initially noted to be tachycardic at 114 but was otherwise stable. Labs were significant for a total bili of 2.3, AST of 110, ALT of 183, alk phos of 565. CT of the abd/pelvis w/IV con was read as "1. No significant change since CT of January 28, 2023. The primary pancreatic mass and hepatic and peritoneal metastases are similar to prior CT. Trace ascites. 2. No change in position of a stent within the distal duodenum and proximal jejunum. No evidence for a bowel obstruction. 3. No new sites of metastatic disease identified. 4. Splenomegaly, similar to prior exam.". The patient was given 4 mg IV morphine and 2 doses of 50 mcg IV fentanyl with improvement in his pain to a 3/10. He was evaluated by Heme/onc who discussed the possibility of ongoing outpatient pain management with the patient and his . At this time they requested admission for pain management as they are concerned he will continue to have uncontrolled pain after discharge home. At the time of the exam the patient was sitting in bed in no acute distress with his sitting bedside, history was obtained from both. He has been following with [facility] medicine for his cancer related pain. The sites of his chronic pain are the epigastric region, RUQ and LUQ, and upper thoracic spine. The sites of his pain have not changed, but the severity has been increased into the 8-10's since the weekend. They called the section housekeeper Palliative medicine provider on 02/10 who had him increased the dose of his fentanyl patch from 25 mcg to 37.5 mcg. He was also using his prn PO oxycodone without relief. They also state that he gets some brain fog when using the PO oxycodone. They deny recent fever, chills, chest pain, SOB, dysuria, hematuria, diarrhea, LE swelling or pain. They state that he had to lower himself to the ground early this am on arrival due to his pain being so severe. He denies losing consciousness or hitting his head and denies any symptoms such as lightheadedness, dizziness, chest pain, or palpitations. His pain is currently at a 4/10 at the time of my exam. Principal Diagnosis cancer related pain Discharge Exam General: A&Ox3. NAD. Cooperative. HEENT: Atraumatic, normocephalic. Vision/hearing intact Pulm: CTAB A&P. -wheezes, -rales, -rhonchi. Symmetrical chest rise. No increased work of breathing. No respiratory distress. Cardiac: RRR, -mrg. Radial pulses intact and symmetrical. Abdominal: No involuntary guarding. Upper quadrant/epigastric tenderness Discharge Data Allergies Allergy/AdvReac Type Severity Reaction Status Date / Time No Known Drug Allergies Allergy none Verified 02/06/23 07:14 Consultations 02/13/23 07:55 ED Decision to Admit Stat 02/13/23 08:07 Consult Oncology Stat 02/13/23 11:32 Consult Pain Management Routine 02/14/23 08:09 Consult Psychiatry Routine 02/15/23 12:46 Consult Palliative Care Routine Ordered Studies 02/13/23 05:44 CT abd pelvis IV con only Stat 02/15/23 12:52 CT for pulmonary embolism PE [CT angio chest PE protocol] Urgent Hospital Course (1) Cancer related pain: Aminal pain with metastatic adenocarcinoma of the pancreas, mets to liver Sites of pain have not changed but continues to worsen. Has had slight up titration of phenyl patch as outpatient at 37.5 mcg, has had difficulty with insurance authorization see palliative care note Improved on fentanyl 50 mcg and oxycodone IR. Patient reports he takes his twice daily at home. Did see pain management this morning who recommended MS IR every 4 hours as needed and to follow for requirement/oral tolerability with IV morphine as backup. Has not required IV breakthrough dosing. Discussed with palliative care who is working with case management to help obtain authorization for his current pain regimen. Appreciate assistance Narcan if needed for narcosis/sedation none is present at time of morning exam Psychiatry consulted. With adjustment disorder and anxiety with predominant barrier being sleepy. Recommended avoiding benzodiazepines especially given underlying opiate use. Discussed with psychiatry, Remeron 7.5 mg at bedtime trial reasonable. Pain appears better controlled today. HR improved after IV fluids. will discharge on pain meds noted below. (2) Elevated LFTs: -All LFT's increased compared to 01/28 -Trace scleral icterus on exam -CT of the abd/pelvis w/IV con without signs of biliary obstruction with duodenal stent in place -Likely due to his known metastatic pancreatic caner with mets to the liver (3) Pancreatic cancer metastasized to liver: Hematology oncology consulted.Hematology oncology consulted. Disease, institution of chemotherapy as inpatient/palliative chemotherapy deferred. They will continue to follow (4) Hypothyroidism: -Continue levothyroxine (5) GERD (gastroesophageal reflux disease): -Continue BID PPI Total Time Total Time Spent Total Time Spent (In Minutes): 32 Discharge Plan Discharge Items Patient Disposition: Home - Self-Care Reason For Visit: UNCONTROLLED CANCER-RELATED PAIN Discharge Diagnosis: uncontrolled cancer related pain Condition on Discharge: Good Activity: Resume your previous activity Non-emergency contact: Primary Care Provider Call non-emergency contact if: you have any medication questions Follow-up/Referrals: Jennifer Sandoval [Primary Care Provider] - (PLEASE CALL YOUR PRIMARY CARE PROVIDER TO SCHEDULE A HOSPITAL DISCHARGE FOLLOW-UP APPOINMENT WITHIN 7-10 DAYS) Diet: Regular Diet Comment: minced and moist Addtl Attending Provider Instructions: resume pain medicine as described below. Followup with Dr. Sampson and PCP in 1-2 weeks. Pending Studies at Discharge: No Stand-Alone Forms: My [employer], Smoking Cessation Medications and DC Order Prescriptions: Continued levothyroxine 25 mcg capsule 25 mcg PO QAM omeprazole 20 mg capsule,delayed release(DR/EC) 20 mg PO BID Patient Comments: has only been using one due to original instructions polyethylene glycol 3350 [Miralax] 17 gram/dose powder 17 g PO DAILY Patient Comments: has not been using Linzess 145 mcg capsule 145 mcg PO DAILY PRN (Reason: Constipation) ondansetron 4 mg tablet,disintegrating 4 mg PO Q6H PRN (Reason: Nausea And Vomiting) ergocalciferol (vitamin D2) 1,250 mcg (50,000 unit) capsule 1,250 mcg PO Q7D Movantik 12.5 mg tablet 12.5 mg PO QAM Qty: 30 2RF Rx Instructions: must be taken on empty stomach; no food 1 hr after or 2-3 hrs before dose prochlorperazine maleate 5 mg tablet 5 mg PO Q6H PRN (Reason: nausea and vomiting) Qty: 60 1RF naloxone 4 mg/actuation spray,non-aerosol 1 spray intranasal Q3M PRN (Reason: opioid overdose) Qty: 2 1RF Rx Instructions: administer 1 dose into ONE nostril; alternate nostrils w each dose until assistance arrives fentanyl 50 mcg/hr patch 72 hour 1 patch transdermal Q72H 30 Days Qty: 10 0RF morphine 15 mg tablet 15 mg PO Q4H PRN (Reason: breakthru cancer pain) 30 Days Qty: 120 0RF duloxetine 30 mg capsule,delayed release(DR/EC) 30 mg PO DAILY 30 Days Qty: 30 2RF acetaminophen 500 mg tablet 1,000 mg PO BID PRN (Reason: Pain) Discharge Orders: Discharge Order (Routine); Ordered 02/16/23 Ordered By: Sergio Shay Admission Data Admit Date/Time: 02/13/23 10:29 Attending Provider: Sergio Shay Admit Provider: Titus Guillen Primary Care Provider: Jennifer Sandoval Other Providers: Hernandez Álvarez; Jorge A Fung; Meek Leblanc; Antonietta Manzano; Hawa Montemayor; Yajaira Overton; Sina Wilburn; Abbe Alexis Other Interventions: Discharge Summary Assessment (RN) Last Done: 02/16/23 12:05 Coding Level of Care Code 04100 INP/OBS DISCH >30 MIN Diagnoses Cancer related pain G89.3 Elevated LFTs R79.89 Pancreatic cancer metastasized to liver C25.9; C78.7 Hypothyroidism E03.9 GERD (gastroesophageal reflux disease) K21.9
[2023-02-16] MEDS: ENOXAPARIN INJ 40 MG/0.4 ML SYR SQ SCH (13:30)
== END 2023-02-16 13:47 | disposition home or self-care (01) | DRG 948 ==
LOC: ED 01:47 → EDINP 10:29 → SUATTDRO 10:29 → 2W 12:28 → 2N 02-14 21:54
DX: K21.9 Gastro-esophageal reflux disease without esophagitis; Z95.828 Presence of other vascular implants and grafts; C25.9 Malignant neoplasm of pancreas, unspecified; R18.8 Other ascites; G47.01 Insomnia due to medical condition; C78.6 Secondary malignant neoplasm of retroperitoneum and peritoneum; F43.23 Adjustment disorder with mixed anxiety and depressed mood; G89.3 Neoplasm related pain (acute) (chronic); E03.9 Hypothyroidism, unspecified; C78.7 Secondary malignant neoplasm of liver and intrahepatic bile duct; Z86.16 Personal history of COVID-19; Z79.890 Hormone replacement therapy

== ENCOUNTER 2023-03-11 13:27 | Inpatient (IN) ==
--- NOTE | 2023-03-11 14:30 | Emergency Department Note ---
Impression & Plan Pancreatic cancer metastasized to liver, Elevated LFTs, Leukocytosis, Elevated bilirubin ED Provider Note NAME: KEL Lee OVER AGE: 37 SEX: M : 1985 ARRIVES VIA: Walk-In INFORMANT: Patient ED PROVIDER(S): Marlon Drummond DO CHIEF COMPLAINT: jaundice HPI: Patient is a 37-year-old male who presents to the ER with a past medical history of pancreatic cancer with metastatic disease to the liver. He is following with Dr. Yeager who obtained blood work and referred him in as he has become jaundiced. He denies all complaints. No headache or change in vision. No chest pain or shortness of breath. He has had some intermittent vomiting but notes its typical with chemo as he just finished up a course at home. He has a stent from stomach to duodenum per report of his significant other at bedside. ADDITIONAL HISTORY OBTAINED: Per HPI Chronic Medical/Social Conditions Affecting Care: Per HPI PAST MEDICAL HISTORY:See Below PAST SURGICAL HISTORY:See Below FAMILY HISTORY:See Below SOCIAL HISTORY:See Below HOME MEDICATIONS:See Below ALLERGIES:See Below VITALS:See Below PHYSICAL EXAMINATION: GENERAL: Sitting up in bed, alert, ill-appearing, disheveled, jaundiced EYE EXAM: Scleral icterus OROPHARYNX: mucous membranes are moist NECK: supple, no nuchal rigidity, no adenopathy, non-tender LUNGS: Clear to auscultation. Normal chest wall mechanics HEART: no murmurs, S1 normal and S2 normal ABDOMEN: abdomen soft, non-tender, normo-active bowel sounds, no masses, no rebound or guarding. UPPER EXTREMITIES: upper extremities are grossly normal. LOWER EXTREMITIES: No pitting edema. NEURO EXAM: Normal sensorium, cranial nerves II-XII grossly intact, normal speech, no gross weakness of arms, no gross weakness of legs. MEDICAL DECISION MAKING: Patient is an unfortunate 37-year-old male with metastatic pancreatic cancer that presents to the ER for jaundice referred him hematology oncology. IV was established and blood work was obtained. Labs show leukocytosis of 22,000 in the setting of recent Neupogen. He had chemo earlier this week and finished up on . INR at 1.3. BMP with a sodium of 133. T. bili 13. Direct had to be redrawn several times eventually resulted at 6.6. Transaminitis with elevated in the low 100s. Pro-Chivo 1.1. Patient was covered with IV antibiotics. CT abdomen pelvis showed no obvious biliary obstruction. I did discuss this with gastroenterology as well and they agreed. Discussed case with the hospitalist for further evaluation management treatment. Patient was given also IV fluids combination with Zosyn while in the ER Consults/Care Managements Discussions: Per MDM Triage Nursing notes reviewed. Limited review of prior medical records performed Vital Signs: reviewed and remarkable for no significant abnormalities Differential diagnosis: Infection, dehydration, metabolic abnormality, hypo/hyperglycemia, electrolyte disturbance, anemia, hypoxia, cardiac sources, intracerebral event, toxicologic, neurologic, as well as other pathologies. ER treatment provided: See below Diagnostics interpreted by me include EKG and cardiac monitoring as listed below: -Cardiac Monitoring: An order was placed for continuous cardiac monitoring. The monitor shows a rate of 110 with sinus rhythm. -ECG: none -Laboratory studies:Interpreted by me as stated above in MDM and shown below. Imaging studies: Xrays: As interpreted by me:none CTs show: CT abdomen pelvis per my preliminary interpretation showed metastatic disease to the liver CT abdomen pelvis per radiology as described above Procedures:none Critical Care: None Past Med/Surg History Medical History Insomnia due to psychological stress Paranoia Hypothyroidism History of COVID-19 01/19/23, tested + [facility], asymptomatic>"never developed any symptoms either" Constipation 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 Burton History of esophagogastroduodenoscopy (EGD) Hx of lymph node biopsy node removed near throat Social History Smoking Status: Never smoker Second Hand Exposure: No; Do You Dip or Chew Tobacco: No; Hx Alcohol Use: No Hx Substance Use: No Preferred Language: Azeri Communication Ability: Effective Fire Control Mechanic Required: No Beliefs That Will Affect Care: None Current Living Situation: Spouse Feels Safe at Home: Yes Assistive Devices: None Allergies Allergies Allergy/AdvReac Type Severity Reaction Status Date / Time No Known Drug Allergies Allergy none Verified 03/11/23 15:11 Home Meds Home Medications Medication Instructions Recorded Confirmed ergocalciferol (vitamin D2) 1,250 1,250 mcg PO Q7D 01/25/23 03/11/23 mcg (50,000 unit) capsule levothyroxine 25 mcg capsule 25 mcg PO QAM 01/25/23 03/11/23 linaclotide 145 mcg capsule 145 mcg PO DAILY PRN Constipation 01/25/23 03/11/23 (Linzess) omeprazole 20 mg capsule,delayed 20 mg PO QAM 01/25/23 03/11/23 release ondansetron 4 mg disintegrating 4 mg PO Q6H PRN Nausea And Vomiting 01/25/23 03/11/23 tablet polyethylene glycol 3350 17 17 g PO DAILY PRN Constipation 01/25/23 03/11/23 gram/dose oral powder (Miralax) acetaminophen 500 mg tablet 1,000 mg PO BID PRN Pain 02/06/23 03/11/23 duloxetine 30 mg capsule,delayed 30 mg PO QPM ca related 03/11/23 03/11/23 release depression/anxiety & adjunct pain mgt lorazepam 0.5 mg tablet 0.5 mg PO BID PRN tremors 03/11/23 03/11/23 promethazine 12.5 mg tablet 12.5 mg PO Q6 PRN Nausea 03/11/23 03/11/23 Previous Rx's Medication Instructions Recorded naloxegol 12.5 mg tablet (Movantik) 12.5 mg PO QAM #30 tabs 01/25/23 naloxone 4 mg/actuation nasal spray 1 spray intranasal Q3M PRN opioid 01/25/23 overdose #2 ea prochlorperazine maleate 5 mg 5 mg PO Q6H PRN nausea and 01/25/23 tablet vomiting #60 tabs fentanyl 50 mcg/hr transdermal 1 patch transdermal Q72H very 02/15/23 patch severe cancer pain 1 month #10 ea morphine 15 mg immediate release 15 mg PO Q4H PRN breakthru cancer 02/15/23 tablet pain 1 month #120 tabs Results & Data (ED) Vital Signs Vital Signs - 24 hr 03/11/23 13:45 03/11/23 15:14 03/11/23 15:15 Temperature 36.6 C 36.7 C Temperature Source Temporal Artery Scan Oral Pulse Rate 119 H 90 Pulse Rate [Apical] 91 H Pulse Rhythm Regular Pulse Rhythm [Apical] Regular Pulse Strength [Apical] Normal Respiratory Rate 20 17 16 Respiratory Effort / Characteristics Non-Labored Non-Labored Spontaneous Respiratory Depth Normal Normal Respiratory Pattern Regular Blood Pressure 115/77 Blood Pressure [Right Arm] 102/63 Blood Pressure Mean 89 Blood Pressure Mean [Right Arm] 76 Pulse Oximetry 96 100 100 Oxygen Delivery Method Room Air Room Air Room Air Sepsis Recent Fever Within 48 Hours No Sepsis New/Unexplained Change in Mental Status No Sepsis Action Taken by Nursing No Action Required 03/11/23 15:40 Temperature Temperature Source Pulse Rate 87 Pulse Rate [Apical] Pulse Rhythm Pulse Rhythm [Apical] Pulse Strength [Apical] Respiratory Rate Respiratory Effort / Characteristics Respiratory Depth Respiratory Pattern Blood Pressure Blood Pressure [Right Arm] Blood Pressure Mean Blood Pressure Mean [Right Arm] Pulse Oximetry Oxygen Delivery Method Sepsis Recent Fever Within 48 Hours Sepsis New/Unexplained Change in Mental Status Sepsis Action Taken by Nursing Laboratory Data 03/11/23 14:30 03/11/23 14:30 Lab Results 03/11/23 03/11/23 03/11/23 Range/Units 14:30 14:39 16:01 WBC 22.14 H (4.8-10.8) K/ul RBC 3.56 L (4.70-6.10) M/uL Hgb 11.1 L (14.0-18.0) g/dl POC Hgb 12.6 L (14.0-18.0) g/dl Hct 32.0 L (42.0-52.0) % POC Hct 37 L (42-52) % MCV 89.9 (80.0-100.0) fL MCH 31.2 (25.0-34.0) pg MCHC 34.7 (32.0-36.0) g/dL RDW Std Deviation 52.5 H (36.4-46.3) fL RDW Coeff of Dmitriy 15.9 H (11.5-14.5) % Plt Count 141 (130-400) K/uL MPV 11.9 (9.4-12.4) fL Immature Gran % (Auto) 7.7 % Neut % (Auto) 87.8 % Lymph % (Auto) 3.3 % Swain % (Auto) 0.6 % Eos % (Auto) 0.2 % Baso % (Auto) 0.4 % Neut # (Auto) 19.45 H (1.40-6.50) K/uL Lymph # (Auto) 0.72 L (1.20-3.40) K/uL Swain # (Auto) 0.13 (0.11-0.59) K/uL Eos # (Auto) 0.05 (0.00-0.50) K/uL Baso # (Auto) 0.09 (0.00-0.20) K/uL Immature Gran # (Auto) 1.70 H (0.01-0.20) K/uL Toxic Granulation 1+ Dohle Bodies 1+ Target Cells 1+ PT 13.6 H (9.0-12.0) Seconds INR 1.3 H (0.9-1.1) POC Sodium 134 L (135-144) mmol/L Sodium 133 L (136-145) mmol/L POC Potassium 4.0 (3.3-5.0) mmol/L Potassium 4.0 (3.5-5.1) mmol/L POC Chloride 99 L (101-112) mmol/L Chloride 98 (98-107) mmol/L Carbon Dioxide 26 (21-32) mmol/L POC Total CO2 25 (24-31) mmol/L Anion Gap 9 (3-11) POC Anion Gap 15.0 L (16-25) mmol/L POC BUN 17 (7-18) mg/dl BUN 19 (6-23) mg/dl Creatinine 0.71 (0.6-1.4) mg/dl POC Creatinine 0.5 L (0.6-1.3) mg/dl Est Cr Clr Drug Dosing 149.9 ml/min Est GFR ( Amer) 140.9 ml/min Est GFR (Non-Af Amer) 121.6 ml/min BUN/Creatinine Ratio 26.8 H (10-20) Glucose 195 H (70-99(Fasting)) mg/dl POC Glucose (other) 195 H (70-99) mg/dl Calcium 9.4 (8.6-10.3) mg/dl POC Ioniz Calcium Eddie 1.20 (1.12-1.32) mmol/l Total Bilirubin 13.1 H (0.2-1.0) mg/dl Direct Bilirubin TNP 6.6 H AST 85 H (13-39) U/L ALT 196 H (7-52) U/L Alkaline Phosphatase 915 H (34-104) U/L Total Protein 6.4 (6.0-8.3) gm/dl Albumin 3.8 (3.4-5.0) gm/dl Globulin 2.6 (2.5-4.0) gm/dl Albumin/Globulin Ratio 1.5 (0.9-2) Lipase 3 L (11-82) U/L Procalcitonin 1.19 H (0-0.5) ng/ml Administered Medications Parenteral Electrolytes (Plasma-Lyte A Ph 7.4) 1,000 mls @ 80 mls/hr IV .[id number] [facility] Stop: 03/12/23 06:14 Last Admin: 03/11/23 18:05 Dose: 80 mls/hr Documented By: GENARO Discontinued Medications Sodium Chloride (Nss) 1,000 mls @ 999 mls/hr IV .Q1H1M [facility] Stop: 03/11/23 16:30 Last Infusion: 03/11/23 17:55 Dose: Infused Documented By: Admin: 03/11/23 15:18 Dose: 999 mls/hr Documented By: Infusion: 03/11/23 15:18 Dose: Infused Documented By: Admin: 03/11/23 15:03 Dose: 999 mls/hr Documented By: GENARO Piperacillin Sod/Tazobactam Sod (Zosyn) 4.5 gm in 100 mls @ 200 mls/hr IV NOW ONE Stop: 03/11/23 15:55 Last Infusion: 03/11/23 17:54 Dose: Infused Documented By: Admin: 03/11/23 16:28 Dose: 200 mls/hr Documented By: GENARO Ioversol (Optiray 320 500ml) 89 ml IV ONCE ONE Stop: 03/11/23 14:53 Last Admin: 03/11/23 14:52 Dose: 89 ml Documented By: CONSTANTINO Loratadine (Loratadine 10 Mg Tab) 10 mg PO NOW ONE Stop: 03/11/23 17:51 Last Admin: 03/11/23 18:04 Dose: 10 mg Documented By: GENARO Prochlorperazine (Prochlorperazine Maleate 5 Mg Tab) 5 mg PO NOW ONE Stop: 03/11/23 17:35 Last Admin: 03/11/23 18:04 Dose: 5 mg Documented By: GENARO Imaging Data Radiologist's Impression: Abdomen/Pelvis CT 03/11/23 14:13 CT abd pelvis IV con only CLINICAL HISTORY: Jaundice with pancreatic cancer TECHNIQUE: Helical axial images of the abdomen and pelvis were obtained and displayed. Automated dose lowering techniques and/or adjustment according to patient size were utilized for this exam. This exam was performed with intravenous contrast. CT DOSE: 1173.2 mGy.cm COMPARISON: Comparison is made to CT abdomen pelvis 02/13/2023 FINDINGS: Lower chest: No acute abnormality. Liver: Interval hepatic masses are seen. Gallbladder and biliary tree: No calcified gallstones. Normal caliber wall. No intra- or extrahepatic biliary ductal dilation. Pancreas: Hypodense pancreatic body mass is essentially unchanged. Spleen: Stable prominence of the spleen. Adrenals: Unremarkable. Kidneys and ureters: Unremarkable. Bladder: Limited evaluation due to underdistention. Reproductive organs: Unremarkable. Bowel: The appendix is normal. Duodenal/proximal jejunal stent is unchanged. Lymph nodes Retroperitoneal: Unremarkable. Pelvic: Unremarkable. Mesenteric: Unremarkable. Peritoneum: Numerous peritoneal deposits are seen, overall similar to prior exam. 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 Abdominal wall: Unremarkable. Bones: Unremarkable. IMPRESSION: No acute abnormalities. Redemonstration of numerous hepatic metastases, pancreatic primary, and peritoneal deposits. ACT 112: Negative or not required by law. Electronically signed by: Anthony Mendez M.D. 03/11/2023 4:11 PM Discharge Plan Visit Data Chief Complaint: Referred by Doctor Stated Complaint: abnormal labs, ref by doc ED Provider: Marlon Drummond Discharge Problem: Pancreatic cancer metastasized to liver, Elevated LFTs, Leukocytosis, Elevated bilirubin Patient Disposition: Admitted As Inpatient Discharge Instructions Interventions: ED Discharge Assessment Last Done: 03/11/23 18:30 Discharge Problem: Leukocytosis Qualifiers: Leukocytosis type: unspecified Qualified Code(s): D72.829 - Elevated white blood cell count, unspecified
[2023-03-11 14:51] LABS: Hemoglobin 11.1 g/dl (14.0-18.0); Mean Corpuscular Hemoglobin 31.2 pg (25.0-34.0); Mean Corpuscular Hgb Conc 34.7 g/dL (32.0-36.0); Mean Corpuscular Volume 89.9 fL (80.0-100.0); Mean Platelet Volume 11.9 fL (9.4-12.4); Platelet Count 141 K/uL (130-400); RDW Coefficient of Variation 15.9 % (11.5-14.5); RDW Standard Deviation 52.5 fL (36.4-46.3); Red Blood Count 3.56 M/uL (4.70-6.10); White Blood Count 22.14 K/ul (4.8-10.8)
[2023-03-11] MEDS ORDERED: OPTIRAY 320 500ml IV ONE (14:52)
[2023-03-11] MEDS: SODIUM CHLORIDE 0.9% 1,000 ML IV SCH ×2 (15:03→15:18)
[2023-03-11 15:08] LABS: Alanine Aminotransferase 196 U/L (7-52); Albumin Globulin Ratio 1.5 (0.9-2); Albumin Level 3.8 gm/dl (3.4-5.0); Alkaline Phosphatase 915 U/L (34-104); Anion Gap 9 (3-11); Aspartate Aminotransferase 85 U/L (13-39); BUN Creatinine Ratio 26.8 (10-20); Bilirubin,Total 13.1 mg/dl (0.2-1.0); Blood Urea Nitrogen 19 mg/dl (6-23); Calcium 9.4 mg/dl (8.6-10.3); Carbon Dioxide 26 mmol/L (21-32); Chloride 98 mmol/L (98-107); Creatinine Clr Calc Pharmacy 149.9 ml/min; Est GFR (African American) 140.9 ml/min; Est GFR (Non-African American) 121.6 ml/min; Globulin 2.6 gm/dl (2.5-4.0); Glucose 195 mg/dl (70-99(Fasting)); Lipase 3 U/L (11-82); Sodium 133 mmol/L (136-145); Total Protein 6.4 gm/dl (6.0-8.3)
[2023-03-11] MEDS ORDERED: PIPERACILLIN/TAZOBACTAM 4.5 GM/100 ML BAG IV ONE (15:26)
[2023-03-11 15:30] LABS: iSTAT Creatinine 0.5 mg/dl (0.6-1.3); iSTAT Hemoglobin 12.6 g/dl (14.0-18.0); iSTAT Ionized Calcium 1.2 mmol/l (1.12-1.32)
[2023-03-11 15:43] LABS: Basophils # (auto) 0.09 K/uL (0.00-0.20); Basophils % (auto) 0.4 %; Dohle Bodies 1+; Eosinophils # (auto) 0.05 K/uL (0.00-0.50); Eosinophils % (auto) 0.2 %; Immature Granulocytes % (auto) 7.7 %; Lymphocytes # (auto) 0.72 K/uL (1.20-3.40); Lymphocytes % (auto) 3.3 %; Monocytes # (auto) 0.13 K/uL (0.11-0.59); Monocytes % (auto) 0.6 %; Neutrophils # (auto) 19.45 K/uL (1.40-6.50); Neutrophils % (auto) 87.8 %; Target Cells 1+; Toxic Granulation 1+
[2023-03-11 15:46] LABS: INR 1.3 (0.9-1.1); Prothrombin Time 13.6 Seconds (9.0-12.0)
--- NOTE | 2023-03-11 16:13 | CT Scan Report ---
CT abd pelvis IV con only CLINICAL HISTORY: Jaundice with pancreatic cancer TECHNIQUE: Helical axial images of the abdomen and pelvis were obtained and displayed. Automated dose lowering techniques and/or adjustment according to patient size were utilized for this exam. This e xam was performed with intravenous contrast. CT DOSE: 1173.2 mGy.cm COMPARISON: Comparison is made to CT abdomen pelvis 02/13/2023 FINDINGS: Lower chest: No acute abnormality. Liver: Interval hepatic masses are seen. Gallbladder and biliary tree: No calcified gallstones. Normal caliber wall. No intra- or extrahepatic biliary ductal dilation. Pancreas: Hypodense pancreatic body mass is essentially unchanged. Spleen: Stable prominence of the spleen. Adrenals: Unremarkable. Kidneys and ureters: Unremarkable. Bladder: Limited evaluation due to underdistention. Reproductive organs: Unremarkable. Bowel: The appendix is normal. Duodenal/proximal jejunal stent is unchanged. Lymph nodes Retroperitoneal: Unremarkable. Pelvic: Unremarkable. Mesenteric: Unremarkable. Peritoneum: Numerous peritoneal deposits are seen, overall similar to prior exam. 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 Abdominal wall: Unremarkable. Bones: Unremarkable. IMPRESSION: No acute abnormalities. Redemonstration of numerous hepatic metastases, pancreatic primary, and perit paige deposits. ACT 112: Negative or not required by law. Electronically signed by: Anthony Mendez M.D. 03/11/2023 4:11 PM
--- NOTE | 2023-03-11 17:15 | History & Physical Report ---
Date of Service March 11, 2023 Assessment & Plan (1) Elevated bilirubin: Plan: -Admit to med/tele and pulse oximetry -Currently stable -Presented to the ED due to outpatient labs showing an elevated total bilirubin and significant jaundice with scleral icterus -Patient is currently undergoing chemotherapy, follows with Dr. Sampson -Total bili today noted to be 13 with direct bili of 6.6 -CT of the abd/pelvis w/IV con is negative for sings of obstruction -At this time the patient's elevated bilirubin could be related to his currently chemotherapy treatment, he also has active pancreatic cancer with mets to the liver -GI also evaluated the imaging and agrees there is no obstruction -Will consult Oncology to follow -S/P 1L NSS in the ED, will continue light IV hydration with LR overnight until he is tolerating PO intake -PRN hydroxyzine for itching -SQ lovenox for DVT PPX -Clear liquid diet for now -AM CBC, CMP, mag, PT/INR (2) Elevated LFTs: Plan: -While AST and ALT are still elevated, they are improving compared to recent values -Likely related to his active cancer with mets to the liver -Continue to trend daily LFT's -Avoid hepatotoxic agents (3) Leukocytosis: Plan: -Noted to have a leukocytosis of 22 with neutrophil predominance of 19 -Procal also elevated at 1.19 -While his leukocytosis could be related to his recent dose of Neulasta, we cannot rule out infection at this time with his immunocompromised state -No sings of infection of CT of the abd/plvis, no recent diarrhea, denies urinary or pulmonary symptoms -Blood cultures obtained in the ED prior to dose of Zoysn given -Will obtain CXR and UA for further evaluation -Will continue 48 hours of empiric Zosyn for now -Follow infectious workup and monitor fever curve (4) Adjustment disorder with anxiety: Plan: -Continue Duloxetine, prn ativan (5) Hypothyroidism: Plan: -Continue levothyroxine (6) Cancer related pain: Plan: -Continue home regimen controlled by Palliative medicine -Will order prn narcan for oversedation (7) Pancreatic cancer metastasized to liver: Plan: -Continue to follow with heme/onc Plan The patient was discussed with Dr. Quinteros at the time of the admission History of Present Illness Chief Complaint: Painless Jaundice, elevated bili on outpatient labs Primary Care Provider: Jennifer Nguyen is a 37 year old male with a PMH significant for adenocarcinoma of the pancreas with metastases to the liver S/P duodenal stent placement with cancer related pain (Follows with Dr. Sampson and Palliative medicine), hypothyroidism, adjustment disorder, and anxiety who presented to the [facility] ED on 03/11/23 after developing painless jaundice and having increased bilirubin on outpatient labs. He remained stable in the ED. Labs were significant for a leukocytosis of 22 with neutrophil predominance of 19, INR of 1.3, sodium of 133, chloride of 99, total bili of 13, direct bili of 6.6, AST of 85, ALT of 196, alk phos of 915, negative lipase, procal of 1.19. CT of the abd/pelvis with IV con was read as "No acute abnormalities. Redemonstration of numerous hepatic metastases, pancreatic primary, and peritoneal deposits.". The ED spoke with Gastroenterology who aslo reviewed the imaging and confirmed that they did not see an obstruction of the biliary system. They recommended admission to medicine with Heme/onc consult. Prior to admission the patient was given 1L NSS and a dose of zosyn. At the time of the admission the patient was sitting in bed in no acute distress with his and brother sitting bedisde. They explain that the patient recently completed his second course of 5-FU chemotherapy from 03/06-03/08 and completed a course of Nulasta from 03/08-03/09. Routine outpatient labs had been collected and they were instructed to come to the ED for evaluation due to his significantly increased bilirubin and concern for recurrent biliary obstruction. He states that he is unsure when he first noticed the increased jaundice but states that it has been getting significantly worse over the past 48 hours. He has been having poor oral intake due to increased nausea/vomiting and ihas noticed that he has been itchy since this am. He he has had intermitted episodes of chills with diaphoresis but denies a significant fever. He denies chest pain, SOB, cough, new abd pain, hematemesis, diarrhea, dysuria, hematuria, melena, LE swelling, and recent trauma. Please refer to Dr. Quinteros's attestation for any changes to the treatment plan Allergies Allergy/AdvReac Type Severity Reaction Status Date / Time No Known Drug Allergies Allergy none Verified 03/11/23 15:11 Home Medications Medication Instructions Recorded Confirmed Type ergocalciferol (vitamin D2) 1,250 1,250 mcg PO Q7D 01/25/23 03/11/23 History mcg (50,000 unit) capsule levothyroxine 25 mcg capsule 25 mcg PO QAM 01/25/23 03/11/23 History linaclotide 145 mcg capsule 145 mcg PO DAILY PRN Constipation 01/25/23 03/11/23 History (Linzeskel) naloxegol 12.5 mg tablet (Movantik) 12.5 mg PO QAM #30 tabs 01/25/23 03/11/23 Rx naloxone 4 mg/actuation nasal spray 1 spray intranasal Q3M PRN opioid 01/25/23 03/11/23 Rx overdose #2 ea omeprazole 20 mg capsule,delayed 20 mg PO QAM 01/25/23 03/11/23 History release ondansetron 4 mg disintegrating 4 mg PO Q6H PRN Nausea And Vomiting 01/25/23 03/11/23 History tablet polyethylene glycol 3350 17 17 g PO DAILY PRN Constipation 01/25/23 03/11/23 History gram/dose oral powder (Miralax) prochlorperazine maleate 5 mg 5 mg PO Q6H PRN nausea and 01/25/23 03/11/23 Rx tablet vomiting #60 tabs acetaminophen 500 mg tablet 1,000 mg PO BID PRN Pain 02/06/23 03/11/23 History fentanyl 50 mcg/hr transdermal 1 patch transdermal Q72H very 02/15/23 03/11/23 Rx patch severe cancer pain 1 month #10 ea morphine 15 mg immediate release 15 mg PO Q4H PRN breakthru cancer 02/15/23 03/11/23 Rx tablet pain 1 month #120 tabs duloxetine 30 mg capsule,delayed 30 mg PO QPM ca related 03/11/23 03/11/23 History release depression/anxiety & adjunct pain mgt lorazepam 0.5 mg tablet 0.5 mg PO BID PRN tremors 03/11/23 03/11/23 History promethazine 12.5 mg tablet 12.5 mg PO Q6 PRN Nausea 03/11/23 03/11/23 History Past Med/Surg History Medical History Insomnia due to psychological stress Paranoia Hypothyroidism History of COVID-19 01/19/23, tested + formerly [facility], asymptomatic>"never developed any symptoms either" Constipation 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 Burton History of esophagogastroduodenoscopy (EGD) Hx of lymph node biopsy node removed near throat Social History Smoking Status: Never smoker Second Hand Exposure: No; Do You Dip or Chew Tobacco: No; Hx Alcohol Use: No Hx Substance Use: No Preferred Language: Hebrew Communication Ability: Effective Leaf Tier Required: No Beliefs That Will Affect Care: None Current Living Situation: Spouse Feels Safe at Home: Yes Assistive Devices: None Physical Exam Physical Exam: Physical Exam: General: In no acute distress, stated age, significantly jaundiced on exam, chronically ill appearing HEENT: Normocephalic, atraumatic, + scleral icterus, pupils around round, symmetrical, and reactive to light, moist mucus membranes, trachea midline, no thyromegaly Chest/Pulm: mediport located in the left upper chest is without signs of infection, No respiratory distress, symmetrical chest expansion, clear breath sounds throughout Cardiac: RRR, no murmurs noted Abdomen: Negative for ascites and bruising, normoactive bowel sounds, soft, non-tender to palpation throughout Musculoskeletal: Symmetrical and without signs of acute trauma, upper and lower extremities with full ROM, no atrophy, spasticity, or flaccidity Extremities: Radial, dorsalis pedis, and posterior tibial pulses are intact and symmetrical, no edema noted in the BL LE's Skin: Significant jaundice noted Neuro: Alert and oriented to person, place, month, year, and president, no focal defects, no tremors noted Psych: No acute distress, calm and cooperative during the exam Results & Data Results & Data Vital Signs (Past 12 Hours) Vital Signs Temp Pulse Pulse Resp BP BP Pulse Ox 03/11/23 15:40 87 03/11/23 15:15 90 16 100 03/11/23 15:14 36.7 C 91 H 17 102/63 100 03/11/23 13:45 36.6 C 119 H 20 115/77 96 O2 Del Method 03/11/23 15:40 03/11/23 15:15 Room Air 03/11/23 15:14 Room Air 03/11/23 13:45 Room Air Laboratory Results Abnormal lab results 03/11/23 03/11/23 03/11/23 Range/Units 14:30 14:39 16:01 WBC 22.14 H (4.8-10.8) K/ul RBC 3.56 L (4.70-6.10) M/uL Hgb 11.1 L (14.0-18.0) g/dl POC Hgb 12.6 L (14.0-18.0) g/dl Hct 32.0 L (42.0-52.0) % POC Hct 37 L (42-52) % RDW Std Deviation 52.5 H (36.4-46.3) fL RDW Coeff of Dmitriy 15.9 H (11.5-14.5) % Neut # (Auto) 19.45 H (1.40-6.50) K/uL Lymph # (Auto) 0.72 L (1.20-3.40) K/uL Immature Gran # (Auto) 1.70 H (0.01-0.20) K/uL PT 13.6 H (9.0-12.0) Seconds INR 1.3 H (0.9-1.1) POC Sodium 134 L (135-144) mmol/L Sodium 133 L (136-145) mmol/L POC Chloride 99 L (101-112) mmol/L POC Anion Gap 15.0 L (16-25) mmol/L POC Creatinine 0.5 L (0.6-1.3) mg/dl BUN/Creatinine Ratio 26.8 H (10-20) Glucose 195 H (70-99(Fasting)) mg/dl POC Glucose (other) 195 H (70-99) mg/dl Total Bilirubin 13.1 H (0.2-1.0) mg/dl Direct Bilirubin 6.6 H (0-0.2) mg/dl AST 85 H (13-39) U/L ALT 196 H (7-52) U/L Alkaline Phosphatase 915 H (34-104) U/L Lipase 3 L (11-82) U/L Procalcitonin 1.19 H (0-0.5) ng/ml Ur Specific Thompson (1.000-1.030) Urine Nitrite (Negative) Urine Bilirubin (Negative) Urine Urobilinogen (Negative) Ur Leukocyte Esterase (Negative) 03/11/23 Range/Units 18:13 WBC (4.8-10.8) K/ul RBC (4.70-6.10) M/uL Hgb (14.0-18.0) g/dl POC Hgb (14.0-18.0) g/dl Hct (42.0-52.0) % POC Hct (42-52) % RDW Std Deviation (36.4-46.3) fL RDW Coeff of Dmitriy (11.5-14.5) % Neut # (Auto) (1.40-6.50) K/uL Lymph # (Auto) (1.20-3.40) K/uL Immature Gran # (Auto) (0.01-0.20) K/uL PT (9.0-12.0) Seconds INR (0.9-1.1) POC Sodium (135-144) mmol/L Sodium (136-145) mmol/L POC Chloride (101-112) mmol/L POC Anion Gap (16-25) mmol/L POC Creatinine (0.6-1.3) mg/dl BUN/Creatinine Ratio (10-20) Glucose (70-99(Fasting)) mg/dl POC Glucose (other) (70-99) mg/dl Total Bilirubin (0.2-1.0) mg/dl Direct Bilirubin (0-0.2) mg/dl AST (13-39) U/L ALT (7-52) U/L Alkaline Phosphatase (34-104) U/L Lipase (11-82) U/L Procalcitonin (0-0.5) ng/ml Ur Specific Thompson > 1.045 H (1.000-1.030) Urine Nitrite Positive A (Negative) Urine Bilirubin 3+ H (Negative) Urine Urobilinogen Positive H (Negative) Ur Leukocyte Esterase Trace H (Negative) Diagnostic Findings Abdomen/Pelvis CT 03/11/23 14:13 CT abd pelvis IV con only CLINICAL HISTORY: Jaundice with pancreatic cancer TECHNIQUE: Helical axial images of the abdomen and pelvis were obtained and displayed. Automated dose lowering techniques and/or adjustment according to patient size were utilized for this exam. This exam was performed with intravenous contrast. CT DOSE: 1173.2 mGy.cm COMPARISON: Comparison is made to CT abdomen pelvis 02/13/2023 FINDINGS: Lower chest: No acute abnormality. Liver: Interval hepatic masses are seen. Gallbladder and biliary tree: No calcified gallstones. Normal caliber wall. No intra- or extrahepatic biliary ductal dilation. Pancreas: Hypodense pancreatic body mass is essentially unchanged. Spleen: Stable prominence of the spleen. Adrenals: Unremarkable. Kidneys and ureters: Unremarkable. Bladder: Limited evaluation due to underdistention. Reproductive organs: Unremarkable. Bowel: The appendix is normal. Duodenal/proximal jejunal stent is unchanged. Lymph nodes Retroperitoneal: Unremarkable. Pelvic: Unremarkable. Mesenteric: Unremarkable. Peritoneum: Numerous peritoneal deposits are seen, overall similar to prior exam. 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 Abdominal wall: Unremarkable. Bones: Unremarkable. IMPRESSION: No acute abnormalities. Redemonstration of numerous hepatic metastases, pancreatic primary, and peritoneal deposits. ACT 112: Negative or not required by law. Electronically signed by: Anthony Mendez M.D. 03/11/2023 4:11 PM Chest X-Ray 03/11/23 17:52 XR chest 1V portable CLINICAL HISTORY: Infectious workup TECHNIQUE: Single frontal radiograph of the chest was obtained. Comparison: Comparison is made to chest radiograph 02/06/2023 FINDINGS: A port catheter is seen. The cardiomediastinal silhouette is normal. The lungs are clear. No evidence of pleural effusion or pneumothorax. IMPRESSION: No acute abnormalities and in particular no radiographic evidence of pneumonia. ACT 112: Negative or not required by law. Electronically signed by: Anthony Mendez M.D. 03/11/2023 6:41 PM ECG Additional Comments: Will obtain ECG at the time of the admission Code Status & VTE Plan Code Status Full code VTE Prophylaxis Plan VTE Prophylaxis will be ordered: Yes Supervising Physician Co-Signing Physician Notes Patient seen and examined, chart reviewed, case discussed with Titus Guillen PA-C and I agree with the assessment and plan as above except as otherwise noted Labs and images reviewed 37-year-old male with past medical history of pancreatic adenocarcinoma with liver metastasis and history of duodenal stent. He presents with worsened pain, nausea, hyperbilirubinemia, jaundice and fatigue. He has a leukocytosis on admission. CT with contrast in the ER shows no acute abnormalities and was reviewed by GI, specifically there is no acute obstruction of the biliary system. Patient suspected to have progression of his underlying malignancy and hepatic metastasis. He is admitted for pain control and nausea control with a o ncology consult. At time bedside assessment pain has improved with initial analgesics, he is with diffuse jaundice and scleral icterus. Mild abdominal pain at the epigastrium. Denies chest pain/chest pressure. Lungs are clear, heart rate is slightly tachycardic at time of bedside reevaluation. Patient is covered with Zosyn for his leukocytosis which is most likely due to his Neulasta, however with underlying immunocompromise this will be continued for 48 hours empirically while blood cultures and fever curve is followed. agree with assessment and management above. PG Care Time/CCT Total # of Minutes Spent Total Time Spent with Patient: Total time spent is greater than 50% in coordination of care (as documented) at patient's floor/unit and/or counseling patient: Coding [place] [address] INT INP/OBS CARE 3/75MIN Patient Type Established Medical Decision Making High Complexity Diagnoses Elevated bilirubin R17 Elevated LFTs R79.89 Leukocytosis D72.829 Leukocytosis type: unspecified Adjustment disorder with anxiety F43.22 Hypothyroidism E03.9 Cancer related pain G89.3 Pancreatic cancer metastasized to liver C25.9; C78.7 (3) Leukocytosis Leukocytosis type: unspecified Qualified Code(s): D72.829 - Elevated white blood cell count, unspecified
[2023-03-11] MEDS ORDERED: PROCHLORPERAZINE MALEATE 5 MG TAB PO ONE (17:34)
[2023-03-11] MEDS ORDERED: NALOXONE HCL 0.4 MG/1 ML VIAL/CARP IV PRN (17:45)
[2023-03-11] MEDS ORDERED: PLASMA-LYTE A 1,000 ML IV SCH (17:45)
[2023-03-11] MEDS ORDERED: hydrOXYzine HCl 10 MG TAB PO PRN (17:46)
[2023-03-11] MEDS ORDERED: LORATADINE 10 MG TAB PO ONE (17:50)
[2023-03-11 18:27] LABS: Appearance Urine Clear (Clear); Bacteria Urine Automated Negative (Negative); Blood Urine Negative (Negative); Color Urine Dark Yellow; Epithelial Cell Urine Auto 0-5 /lpf (0-5); Glucose Urine UA Negative (Negative); Ketones Urine Negative (Negative); Leukocyte Esterase Urine Trace (Negative); Nitrite Urine Positive (Negative); Protein Urine Negative (Negative); RBC Urine Automated 0-4 /hpf (0-4); Specific Gravity Urine > 1.045 (1.000-1.030); Urobilinogen Urine Positive (Negative); pH Urine 6.5 (4.5-7.5)
[2023-03-11] MEDS ORDERED: LORazepam 0.5 MG TAB PO PRN (18:31)
[2023-03-11] MEDS ORDERED: LINACLOTIDE 145 MCG CAPSULE PO PRN (18:31)
[2023-03-11] MEDS ORDERED: MoRPHine SULFATE IR 15 MG TAB (IMMEDIATE RELEASE) PO PRN (18:31)
[2023-03-11] MEDS ORDERED: POLYETHYLENE (MIRALAX) 17 GM PACK PO PRN (18:31)
--- NOTE | 2023-03-11 18:43 | XRay Report ---
XR chest 1V portable CLINICAL HISTORY: Infectious workup TECHNIQUE: Single frontal radiograph of the chest was obtained. Comparison: Comparison is made to chest radiograph 02/06/2023 FINDINGS: A port catheter is seen. The cardiomediastinal silhouette is normal. The lungs are clear. No evidence of pleural effusion or pneumothorax. IMPRESSION: No acute abnormalities and in particular no radiographic evidence of pneumonia. ACT 112: Negative or not required by law. Electronically signed by: Anthony Mendez M.D. 03/11/2023 6:41 PM
[2023-03-11 18:53] LABS: Bilirubin Urine 3+ (Negative)
[2023-03-11] MEDS ORDERED: PROMETHAZINE HCL 25 MG TAB PO PRN (21:00)
[2023-03-11] MEDS ORDERED: DULoxetine HCL 30 MG CAP PO SCH (21:00)
[2023-03-11] MEDS: PIPERACILLIN/TAZOBACTAM 4.5 GM in DEXTROSE 5% MINI-B 100 ML IV SCH (21:06)
[2023-03-11] MEDS: ENOXAPARIN INJ 40 MG/0.4 ML SYR SQ SCH (21:25)
[2023-03-12] MEDS ORDERED: PROCHLORPERAZINE MALEATE 5 MG TAB PO PRN
[2023-03-12] MEDS: MOVANTIK 12.5 MG SCH ×3 (01:15→16:19)
[2023-03-12] MEDS: CHECK fentaNYL PATCH PLACEMENT SCH ×3 (01:24→16:19)
[2023-03-12] MEDS ORDERED: ONDANSETRON INJ 2 MG/ML 2 ML VIAL IV ONE (04:44)
[2023-03-12] MEDS: PIPERACILLIN/TAZOBACTAM 4.5 GM in DEXTROSE 5% MINI-B 100 ML IV SCH ×2 (04:55→14:23)
[2023-03-12] MEDS ORDERED: LEVOTHYROXINE SODIUM 25 MCG TABLET PO SCH (06:30)
[2023-03-12 07:53] LABS: Hematocrit (blood only) 27.1 % (42.0-52.0); Hemoglobin 9.2 g/dl (14.0-18.0); Mean Corpuscular Hemoglobin 31.2 pg (25.0-34.0); Mean Corpuscular Hgb Conc 33.9 g/dL (32.0-36.0); Mean Corpuscular Volume 91.9 fL (80.0-100.0); Mean Platelet Volume 11.9 fL (9.4-12.4); Platelet Count 122 K/uL (130-400); RDW Coefficient of Variation 15.8 % (11.5-14.5); RDW Standard Deviation 52.4 fL (36.4-46.3); Red Blood Count 2.95 M/uL (4.70-6.10); White Blood Count 18.97 K/ul (4.8-10.8)
[2023-03-12 08:11] LABS: Albumin Globulin Ratio 1.7 (0.9-2); Albumin Level 3.5 gm/dl (3.4-5.0); BUN Creatinine Ratio 19.1 (10-20); Bilirubin,Total 12.3 mg/dl (0.2-1.0); Calcium 9.2 mg/dl (8.6-10.3); Creatinine Clr Calc Pharmacy 156.6 ml/min; Est GFR (African American) 143.4 ml/min; Est GFR (Non-African American) 123.7 ml/min; Globulin 2.1 gm/dl (2.5-4.0); Magnesium 1.9 mg/dl (1.7-2.4); Total Protein 5.6 gm/dl (6.0-8.3)
[2023-03-12 08:57] LABS: ALC (manual) 1.52 K/uL (1.2-3.4); ANC (manual) 17.45 K/uL (1.4-6.5); Dohle Bodies 2+; Lymphocytes # (manual) 1.52 K/uL (1.2-3.4); Lymphocytes % (manual) 8 %; Neutrophils # (manual) 17.45 K/uL (1.40-6.50); Neutrophils % (manual) 92 %; Stomatocytes 1+
[2023-03-12] MEDS ORDERED: PANTOprazole 40 MG TAB PO SCH (09:00)
[2023-03-12] MEDS ORDERED: LORATADINE 10 MG TAB PO SCH (09:00)
[2023-03-12] MEDS ORDERED: ONDANSETRON INJ 2 MG/ML 2 ML VIAL IV PRN (09:00)
[2023-03-12] MEDS ORDERED: LORazepam 0.5 MG in SYRINGE 0.25 ML IV PRN ×2 (10:06→15:23)
--- NOTE | 2023-03-12 10:06 | Hospitalist Progress Note ---
Date of Service March 12, 2023 Assessment & Plan (1) Elevated bilirubin: Plan: -Presented to the ED due to outpatient labs showing an elevated total bilirubin and significant jaundice with scleral icterus -Patient is currently undergoing chemotherapy for metastatic pancreatic CA, follows with Dr. Sampson - Oncology consulted. Spoke with Dr. Sampson, recommended MRCP (ordered) -Total bili still elevated at 12 -CTA/P w/con:negative for sings of obstruction, interval hepatic masses seen -S/P 1L NSS in the ED, will continue light IV hydration with LR overnight until he is tolerating PO intake -SQ lovenox for DVT PPX (2) Elevated LFTs: Plan: -While AST and ALT are still elevated, they are improving compared to recent values -Likely related to his active cancer with mets to the liver -Continue to trend daily LFT's -Avoid hepatotoxic agents (3) Leukocytosis: Plan: -Noted to have a leukocytosis of 22 with neutrophil predominance of 19 -Procal also elevated at 1.19 -While his leukocytosis could be related to his recent dose of Neulasta, we cannot rule out infection at this time with his immunocompromised state -No sings of infection of CT of the abd/plvis, no recent diarrhea, denies urinary or pulmonary symptoms -Blood cultures pending -CXR no acute abnormalities -UA without signs of infection -Will continue 48 hours of empiric Zosyn for now - afebrile overnight (4) Adjustment disorder with anxiety: Plan: -Continue Duloxetine, prn ativan (5) Hypothyroidism: Plan: -Continue levothyroxine (6) Cancer related pain: Plan: -Continue home regimen controlled by Palliative medicine -Palliative medicine consulted -Medications transitioned to IV as able -Will order prn narcan for oversedation (7) Pancreatic cancer metastasized to liver: Plan: -Continue to follow with heme/onc Plan Dispo: transfer to [facility] for surgical intervention. See Discharge summary same day Admission and Anticipated Discharge Date Admission Date: March 11, 2023 Supervising Physician Co-Signing Physician Notes Attending Attestation - Events since admission noted. MRCP findings noted. Will need transfer for intervention of biliary obstruction in the face of stage 4 pancreatic ca. See my attestation on d/c summary with same date. Karthik Scott MD Subjective Patient seen lying in bed. Feels very poorly, emesis bag with green liquid in hand. Reports pain is decently controlled, but having terrible nausea that comes in bouts. Has not been able to eat much over the last 4 days because of nausea. Requesting medications be switched to IV since he vomits up most of his pills. denies CP or SOB. Review of Systems Review of Systems: All systems reviewed & are unremarkable except as noted in Subjective Physical Exam Physical Exam: General: ill appearing, emesis bag with green bile in hand, VS as above Resp: normal respiratory effort, lungs clear to auscultation CV: RRR, no murmur, Abd: normal bowel sounds, mild generalized tenderness Extremities: Moves all extremities, no edema Neuro: A&O x3, Skin: jaundiced, no lesions noted Results & Data Results & Data Vital Signs (Past 12 Hours) Vital Signs Temp Pulse Pulse Resp BP Pulse Ox O2 Del Method 03/12/23 07:59 36.8 C 95 H 18 114/72 96 Room Air 03/12/23 07:17 90 03/12/23 03:03 36.8 C 107 H 18 132/86 100 Room Air 03/11/23 23:31 86 03/11/23 23:30 92 H Laboratory Results CBC, chemistry, INR reviewed PG Care Time/CCT Total # of Minutes Spent Total Time Spent with Patient: Total time spent is greater than 50% in coordination of care (as documented) at patient's floor/unit and/or counseling patient: Coding Level of Care Code None Diagnoses Elevated bilirubin R17 Elevated LFTs R79.89 Leukocytosis D72.829 Leukocytosis type: unspecified Adjustment disorder with anxiety F43.22 Hypothyroidism E03.9 Cancer related pain G89.3 Pancreatic cancer metastasized to liver C25.9; C78.7 (3) Leukocytosis Leukocytosis type: unspecified Qualified Code(s): D72.829 - Elevated white blood cell count, unspecified
[2023-03-12] MEDS ORDERED: MoRPHine SULFATE 4 MG/ML 1 ML CARP\\VIAL IV PRN (10:09)
[2023-03-12] MEDS ORDERED: PANTOprazole 40 MG in SYRINGE 0 ML IV SCH (11:00)
--- NOTE | 2023-03-12 11:14 | Magnetic Resonance Report ---
MRCP CLINICAL HISTORY: Evaluate for biliary obstruction. Pancreatic cancer. TECHNIQUE: Utilizing a 1.5 Dayna magnet and dedicated coil, multiplanar, multiecho imaging of the [facility] abdomen was performed utilizing heavily T2 weighted pulsing sequences without IV contrast. COMPARISON STUDY: CT of the abdomen and pelvis February 13, 2023 and March 11, 2023. FINDINGS: Numerous hepatic lesions have mildly increased in size since CT of February 13, 2023. Index right hepatic lobe lesion measures 1.9 cm. There is nodularity of the liver surface. Caliber of the common bile duct is normal, measuring 3 mm. No common bile duct calculi are identified. Note is made of moderate intrahepatic biliary ductal dilatation within the lateral segment of the liver shown on a xial FIESTA sequence image 12 of 29. There is abrupt narrowing of a bile duct shown on coronal 3-D MR CP sequence image 43 of 128. This results in biliary ductal dilatation within the lateral segment. Th is narrowing is due to a hepatic lesion. No additional sites of intrahepatic biliary ductal dilatatio n is present. A small amount of ascites is present. Splenomegaly is again noted. Peritoneal implants have mildly increased in size since CT of February 13, 2023. Index peritoneal implant measures 1.6 cm . The primary pancreatic body mass is better depicted on recent CT. Duodenal stent is in place. There is no hydronephrosis. Adrenal glands are unremarkable. Caliber of visualized small and large bowel a re normal. IMPRESSION: 1. Moderate biliary ductal dilatation within the lateral segment of the liver. This results from samuel rowing of the bile duct draining the lateral segment by a hepatic lesion. Normal caliber common bile duct. No additional sites of intrahepatic biliary ductal dilatation. 2. Progression of hepatic and peritoneal metastases since CT of February 13, 2023, as described above . 3. Primary pancreatic mass and duodenal stent, better depicted by CT. 4. Stable splenomegaly. ACT 112: Negative or not required by law. Electronically signed by: Delmar Trinidad M.D. 03/12/2023 11:12 AM
[2023-03-12] MEDS ORDERED: ACETAMINOPHEN 1,000 MG/100 ML VIAL IV PRN (13:19)
[2023-03-12] MEDS ORDERED: PALONOSETRON 0.25 MG in SYRINGE 0 ML IV SCH (15:45)
--- NOTE | 2023-03-12 16:35 | Oncology Consultation ---
Date of Consultation March 12, 2023 Assessment & Plan (1) Pancreatic cancer metastasized to liver: Plan - Recommend transfer to [facility] for possible stent placement. If stent placement is not possible, would have to consider switching to supportive care/hospice History of Present Illness Reason for Consultation: Pancreatic Cancer Attending Physician: Karthik Scott MD History of Present Illness Mr. Dunbar is a very pleasant 37-year-old gentleman with metastatic pancreatic adenocarcinoma who presented to the ER at [facility] yesterday for hyperbilirubinemia. He started treatment with NALIRIFOX on 02/20/2023 and received cycle 2 of treatment on 03/06/2023. Labs obtained on 03/05/2023 prior to cycle 2 of treatment had revealed abnormal LFTs with total bilirubin of 5.8, alkaline phosphatase of 1140, AST of 164, ALT of 259. Recommended he presented to the ER yesterday. Repeat labs obtained in the ER revealed total bilirubin of 13.1 with direct bilirubin of 6.6, alkaline phosphatase was 915, ALT was 196 and AST was 85. CT abdomen and pelvis revealed numerous hepatic metastasis, pancreatic primary and peritoneal deposits. MRCP on 03/12/2023 revealed moderate biliary ductal dilatation within the lateral segment of the liver this results from narrowing of the bile duct draining the lateral segment by a hepatic lesion, normal caliber common bile duct. No additional sites of intrahepatic biliary ductal dilatation, Progression of hepatic and peritoneal metastases sinc e CT of February 13, 2023 Allergies Allergy/AdvReac Type Severity Reaction Status Date / Time No Known Drug Allergies Allergy none Verified 03/11/23 15:11 lactose AdvReac Verified 03/12/23 13:58 Home Medications Medication Instructions Recorded Confirmed Type ergocalciferol (vitamin D2) 1,250 1,250 mcg PO Q7D 01/25/23 03/11/23 History mcg (50,000 unit) capsule levothyroxine 25 mcg capsule 25 mcg PO QAM 01/25/23 03/11/23 History linaclotide 145 mcg capsule 145 mcg PO DAILY PRN Constipation 01/25/23 03/11/23 History (Linzess) naloxegol 12.5 mg tablet (Movantik) 12.5 mg PO QAM #30 tabs 01/25/23 03/11/23 Rx naloxone 4 mg/actuation nasal spray 1 spray intranasal Q3M PRN opioid 01/25/23 03/11/23 Rx overdose #2 ea omeprazole 20 mg capsule,delayed 20 mg PO QAM 01/25/23 03/11/23 History release ondansetron 4 mg disintegrating 4 mg PO Q6H PRN Nausea And Vomiting 01/25/23 03/11/23 History tablet polyethylene glycol 3350 17 17 g PO DAILY PRN Constipation 01/25/23 03/11/23 History gram/dose oral powder (Miralax) prochlorperazine maleate 5 mg 5 mg PO Q6H PRN nausea and 01/25/23 03/11/23 Rx tablet vomiting #60 tabs acetaminophen 500 mg tablet 1,000 mg PO BID PRN Pain 02/06/23 03/11/23 History fentanyl 50 mcg/hr transdermal 1 patch transdermal Q72H very 02/15/23 03/11/23 Rx patch severe cancer pain 1 month #10 ea morphine 15 mg immediate release 15 mg PO Q4H PRN breakthru cancer 02/15/23 03/11/23 Rx tablet pain 1 month #120 tabs duloxetine 30 mg capsule,delayed 30 mg PO QPM ca related 03/11/23 03/11/23 History release depression/anxiety & adjunct pain mgt lorazepam 0.5 mg tablet 0.5 mg PO BID PRN tremors 03/11/23 03/11/23 History promethazine 12.5 mg tablet 12.5 mg PO Q6 PRN Nausea 03/11/23 03/11/23 History Patient History Medical History Insomnia due to psychological stress Paranoia Hypothyroidism History of COVID-19 01/19/23, tested + [facility], asymptomatic>"never developed any symptoms either" Constipation 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 Burton History of esophagogastroduodenoscopy (EGD) Hx of lymph node biopsy node removed near throat Social History Smoking Status: Never smoker Second Hand Exposure: No; Do You Dip or Chew Tobacco: No; Hx Alcohol Use: No Hx Substance Use: No Preferred Language: Wolof Communication Ability: Effective Manager Line Required: No Beliefs That Will Affect Care: None Current Living Situation: Spouse Feels Safe at Home: Yes Assistive Devices: None Results & Data Vital Signs (Past 12 Hours) Vital Signs Temp Pulse Pulse Resp BP BP Pulse Ox 03/12/23 16:05 36.4 C L 84 17 123/78 100 03/12/23 11:42 36.5 C 93 H 18 101/52 L 99 03/12/23 09:40 03/12/23 07:59 36.8 C 95 H 18 114/72 96 03/12/23 07:17 90 O2 Del Method 03/12/23 16:05 Room Air 03/12/23 11:42 Room Air 03/12/23 09:40 Room Air 03/12/23 07:59 Room Air 03/12/23 07:17
--- NOTE | 2023-03-12 16:36 | Electrocardiogram Report ---
Test Reason : Blood Pressure : / mmHG Vent. Rate : 093 BPM Atrial Rate : 093 BPM P-R Int : 144 ms QRS Dur : 082 ms QT Int : 390 ms P-R-T Axes : 063 067 020 degrees QTc Int : 484 ms Normal sinus rhythm T wave abnormality, consider inferior ischemia Abnormal ECG No previous ECGs available Confirmed by Michael Simmons ([id number]) on 03/12/2023 4:36:13 PM Referred By: Shalonda Sampson Confirmed By:Roel Simmons
--- NOTE | 2023-03-12 17:03 | Discharge Summary ---
Discharge Summary Date of Service March 12, 2023 Notes For Next Care Provider -Started of empiric Zosyn during hospital stay -Started on palonosetron Pain control regiment switched to IV as patient is not tolerating PO Images pushed to [facility] via radiology Medication Changes From Visit pending changes made at [facility] Admission HPI Per Admitting Provider Patrick is a 37 year old male with a PMH significant for adenocarcinoma of the pancreas with metastases to the liver S/P duodenal stent placement with cancer related pain (Follows with Dr. Sampson and Palliative medicine), hypothyroidism, adjustment disorder, and anxiety who presented to the [facility] ED on 03/11/23 after developing painless jaundice and having increased bilirubin on outpatient labs. He remained stable in the ED. Labs were significant for a leukocytosis of 22 with neutrophil predominance of 19, INR of 1.3, sodium of 133, chloride of 99, total bili of 13, direct bili of 6.6, AST of 85, ALT of 196, alk phos of 915, negative lipase, procal of 1.19. CT of the abd/pelvis with IV con was read as "No acute abnormalities. Redemonstration of numerous hepatic metastases, pancreatic primary, and peritoneal deposits.". The ED spoke with Gastroenterology who aslo reviewed the imaging and confirmed that they did not see an obstruction of the biliary system. They recommended admission to medicine with Heme/onc consult. Prior to admission the patient was given 1L NSS and a dose of zosyn. At the time of the admission the patient was sitting in bed in no acute distr ess with his and brother sitting bedisde. They explain that the patient recently completed his second course of 5-FU chemotherapy from 03/06-03/08 and completed a course of Nulasta from 03/08-03/09. Routine outpatient labs had been collected and they were instructed to come to the ED for evaluation due to his significantly increased bilirubin and concern for recurrent biliary obstruction. He states that he is unsure when he first noticed the increased jaundice but states that it has been getting significantly worse over the past 48 hours. He has been having poor oral intake due to increased nausea/vomiting and ihas noticed that he has been itchy since this am. He he has had intermitted episodes of chills with diaphoresis but denies a significant fever. He denies chest pain, SOB, cough, new abd pain, hematemesis, diarrhea, dysuria, hematuria, melena, LE swelling, and recent trauma. Please refer to Dr. Quinteros's attestation for any changes to the treatment plan Principal Dx & Hospital Course #1 = Principal Diagnosis (1) Elevated bilirubin: -Presented to the ED due to outpatient labs showing an elevated total bilirubin and significant jaundice with scleral icterus -Patient is currently undergoing chemotherapy for metastatic pancreatic CA, follows with Dr. Sampson - Oncology consulted. Spoke with Dr. Sampson, recommended MRCP --> showed obstruction - Dr. Sampson spoke to GI and do not have the capabilities to fix obstruction here and patient will need to be transfered. -Total bili still elevated at 12 -CTA/P w/con:negative for sings of obstruction, interval hepatic masses seen -S/P 1L NSS in the ED, will continue light IV hydration with LR overnight. -was given lovenox for DVT PPX (2) Elevated LFTs: -While AST and ALT are still elevated, they are improving compared to recent values -Likely related to his active cancer with mets to the liver -Avoid hepatotoxic agents (3) Leukocytosis: -Noted to have a leukocytosis of 22 with neutrophil predominance of 19 -Procal also elevated at 1.19 -While his leukocytosis could be related to his recent dose of Neulasta, we cannot rule out infection at this time with his immunocompromised state -No sings of infection of CT of the abd/plvis, no recent diarrhea, denies ur inary or pulmonary symptoms -Blood cultures pending -CXR no acute abnormalities -UA without signs of infection -Will continue 48 hours of empiric Zosyn for now - afebrile overnight (4) Adjustment disorder with anxiety: -Continue Duloxetine, prn ativan (5) Hypothyroidism: -Continue levothyroxine (6) Cancer related pain: -Continue home regimen controlled by Palliative medicine -Palliative medicine consulted -Medications transitioned to IV as able -Will order prn narcan for oversedation (7) Pancreatic cancer metastasized to liver: -Continue to follow with heme/onc Plan Dispo: transfer to [facility] for surgical intervention. Accepting doctor: Dr. Abhay Matthew Discharge Exam General: ill appearing, emesis bag with green bile in hand, VS as above Resp: normal respiratory effort, lungs clear to auscultation CV: RRR, no murmur, Abd: normal bowel sounds, mild generalized tenderness Extremities: Moves all extremities, no edema Neuro: A&O x3, Skin: jaundiced, no lesions noted Updated Medication List Medication Instructions Recorded Confirmed Type ergocalciferol (vitamin D2) 1,250 1,250 mcg PO Q7D 01/25/23 03/11/23 History mcg (50,000 unit) capsule levothyroxine 25 mcg capsule 25 mcg PO QAM 01/25/23 03/11/23 History linaclotide 145 mcg capsule 145 mcg PO DAILY PRN Constipation 01/25/23 03/11/23 History (Linzess) naloxegol 12.5 mg tablet (Movantik) 12.5 mg PO QAM #30 tabs 01/25/23 03/11/23 Rx naloxone 4 mg/actuation nasal spray 1 spray intranasal Q3M PRN opioid 01/25/23 03/11/23 Rx overdose #2 ea omeprazole 20 mg capsule,delayed 20 mg PO QAM 01/25/23 03/11/23 History release ondansetron 4 mg disintegrating 4 mg PO Q6H PRN Nausea And Vomiting 01/25/23 03/11/23 History tablet polyethylene glycol 3350 17 17 g PO DAILY PRN Constipation 01/25/23 03/11/23 History gram/dose oral powder (Miralax) prochlorperazine maleate 5 mg 5 mg PO Q6H PRN nausea and 01/25/23 03/11/23 Rx tablet vomiting #60 tabs acetaminophen 500 mg tablet 1,000 mg PO BID PRN Pain 02/06/23 03/11/23 History fentanyl 50 mcg/hr transdermal 1 patch transdermal Q72H very 02/15/23 03/11/23 Rx patch severe cancer pain 1 month #10 ea morphine 15 mg immediate release 15 mg PO Q4H PRN breakthru cancer 02/15/23 03/11/23 Rx tablet pain 1 month #120 tabs duloxetine 30 mg capsule,delayed 30 mg PO QPM ca related 03/11/23 03/11/23 History release depression/anxiety & adjunct pain mgt lorazepam 0.5 mg tablet 0.5 mg PO BID PRN tremors 03/11/23 03/11/23 History promethazine 12.5 mg tablet 12.5 mg PO Q6 PRN Nausea 03/11/23 03/11/23 History Hospital Stay Data Consultations 03/11/23 16:20 ED Decision to Admit Stat 03/11/23 20:16 Consult Oncology Routine 03/12/23 09:49 Consult Palliative Care Routine Diagnostic Imagining Performed 03/11/23 14:13 CT Abd and Pelvis [CT abd pelvis IV con only] Stat 03/12/23 08:22 MRI MRCP [MR MRCP] Urgent Pending Results Patient Have Any Pending Studies at Discharge: Yes (blood cultures ) Discharge Instructions Given to Patient (Per Discharging Provider) Follow up with oncology and palliative medicine after discharge from [facility]. Changes during admission - Receiving IV Zosyn for leukocytosis - Palonosetron added for nausea MRCP report: 1. Moderate biliary ductal dilatation within the lateral segment of the liver. This results from narrowing of the bile duct draining the lateral segment by a hepatic lesion. Normal caliber common bile duct. No additional sites of intrahepatic biliary ductal dilatation. 2. Progression of hepatic and peritoneal metastases since CT of February 13, 2023, as described above. 3. Primary pancreatic mass and duodenal stent, better depicted by CT. 4. Stable splenomegaly. Total Time Total Time Spent Total Time Spent (In Minutes): Time spend day of discharge 45 minutes including direct patient care, medication reconciliation, documentation, review of labs and images, and coordination of care. Coding Level of Care Code 37971 INP/OBS DISCH >30 MIN Diagnoses Elevated bilirubin R17 Elevated LFTs R79.89 Leukocytosis D72.829 Leukocytosis type: unspecified Adjustment disorder with anxiety F43.22 Hypothyroidism E03.9 Cancer related pain G89.3 Pancreatic cancer metastasized to liver C25.9; C78.7
[2023-03-12] MEDS ORDERED: diphenhydrAMINE 50 MG/ML VIAL IV STA (18:04)
[2023-03-12] MEDS ORDERED: diphenhydrAMINE 50 MG/ML VIAL IV PRN (18:05)
[2023-03-12] MEDS: ENOXAPARIN INJ 40 MG/0.4 ML SYR SQ SCH (18:24)
--- NOTE | 2023-03-12 19:46 | Palliative Care Consultation ---
Date of Consultation March 12, 2023 Assessment & Plan (1) Cancer related pain: Using prn IV meds unable to tolerate PO see ACP conversation (2) Adjustment disorder with anxiety: Increase Ativan frequency to q6h prn (3) Advanced care planning/counseling discussion: Face to face ACP with pt x 50 min at bedside then with pt, his and his brother at bedside face to face for 20min, total ACP time is 70 min face to face With patient's consent, advance care planning conversation was initiated. He and his family participated voluntarily in this conversation. In my first, prior discussion [id number] with patient, he expressed worry about the potentials of the stent either not being able to be done versus not working. He asked what would happen if either of those potentials became in reality. He tells me he is aware from discussion with other providers that the biliary stent cannot be placed, and his time is very limited and his cancer will rapidly progressed to . We discussed that should the stent not be possible or for stent should be placed but failed, we will transition him to a focus that is about comfort and quality of life. He expresses a very strong desire to return home and not in the hospital. I advised him that this can be accomplished with the addition of home hospice. I also encouraged him to be very forthright with the teams at [facility] about his desire for transition home with hospice if things are not working out so that he does not linger in the hospital during which time he may rapidly progress given very rapid rise in his bilirubin. We discussed the dramatic increase in his bilirubin levels in the context of his advanced cancer portend a very poor outcome and very high mortality risk. Bilirubin continues to rise, and the likelihood of an imminent is amplified and anticipated survival would likely be days to a few weeks. We spoke about his concerns that his health insurance and benefits through his employer may be canceled before his , which could include his life insurance policy. He is worried about this happening as he feels he would leave his in a less than ideal financial position. He knows that he would have to ask his HR office for more information regarding how that process may unfold but has simultaneously been reluctant to do so. He has begun the completion of the will and tells me that he has a family friend who is a geosciences faculty member and helping them with this for free. He is grateful for that help. He worries about his being alone after he dies. He states that he does not want to be a burden to her or his family. He is also worried about suffering and that he could in the hospital away from his family, away from his friends and most of all away from his dog and his home which is where he wants to be more than anything else. We spoke at length about the role of hospice. We discussed the goals of hospice as a patient service and the goals of care; we discussed EOL trajectories and transitions maida the emotional impact of realizing mortality as a concrete reality from prior abstract considerations. Pt was reassured that no matter where they are along this trajectory, they are not alone - their medical team will remain by their side through their journey. Discussed the pros/cons of accepting help when especially weakened and distressed by pain-which would also help provide relief/decrease caregiver burden/strain. I provided education about the hospice benefit: an interdisciplinary program offered by nurses, nurses aides, social workers, chaplains and a regional medical director for patients with a terminal condition and a life expectancy of less than 6 months. This is covered by Medicare at 100%/no out of pocket expense to patient and all meds/supplies needed by patient for the reason they are on hospice are paid for/covered by hospice. The goal is assure quality of life of the patient in their home setting (home, usp, inpatient hospice setting) by providing symptoms management, psychosocial and spiritual support. However, they cannot offer 24 hours care and if the family is unable to provide that care, they will have to consider personal care with out of pocket cost vs. usp placement. We discussed the goals of hospice as a patient service and the goals of care; we discussed EOL trajectories and transitions maida the emotional impact of realizing mortality as a concrete reality from prior abstract considerations. Pt was reassured that no matter where they are along this trajectory, they are not alone - their medical team will remain by their side through their journey. Discussed the pros/cons of accepting help when especially weakened and distressed by pain-which would also help provide relief/decrease caregiver burden/strain. I updated patient's and brother with the same information. All questions were answered to their apparent satisfaction. Provided patient's with my cell phone number should any urgent assistance be needed while he is at [facility]. Advised patient not to hesitate to reach out or ask questions when he is beginning to worry. Encouraged him not to try and keep everything inside as this is continuing to add to his distress and oftentimes the answers that he needs are easy to come by. (4) Pancreatic cancer metastasized to liver: (5) Palliative care by specialist: Plan ACP meeting above Ativan increased for sx mgt Awaiting transfer to [facility] likely tonight Will continue to follow with teams Updated primary team, med onc, nursing and care mgt Thank you for allowing us to participate in the ongoing care of this patient. Please don't hesitate to call or page with any additional concerns. Dr. Antonietta Manzano DNP Director, Palliative Care History of Present Illness Reason for Consultation: CA with mets, known to you, pt requested consult Attending Physician: Karthik Scott MD History of Present Illness met pancreatic ca well known to me from prior admissions and OP clinic admitted with worsening jaundice and bili rising, +obstruction - needs stent; bili jose from 2.7--> 4.5 --> 13.1 and today 12.3 MRI cholangiopancreatography: 1. Moderate biliary ductal dilatation within the lateral segment of the liver. This results from narrowing of the bile duct draining the lateral segment by a hepatic lesion. Normal caliber common bile duct. No additional sites of intrahepatic biliary ductal dilatation. 2. Progression of hepatic and peritoneal metastases since CT of February 13, 2023, as described above. 3. Primary pancreatic mass and duodenal stent, better depicted by CT. 4. Stable splenomegaly. [facility] signif pain vomiting all the time, cannot keep anything down feeling despondent, tearful and anxious tells me he was told by other provider if stent cannot be placed, disease would be terminal and time will be limited. Allergies Allergy/AdvReac Type Severity Reaction Status Date / Time No Known Drug Allergies Allergy none Verified 03/11/23 15:11 lactose AdvReac Verified 03/12/23 13:58 Home Medications Medication Instructions Recorded Confirmed Type ergocalciferol (vitamin D2) 1,250 1,250 mcg PO Q7D 01/25/23 03/11/23 History mcg (50,000 unit) capsule levothyroxine 25 mcg capsule 25 mcg PO QAM 01/25/23 03/11/23 History linaclotide 145 mcg capsule 145 mcg PO DAILY PRN Constipation 01/25/23 03/11/23 History (Linzess) naloxegol 12.5 mg tablet (Movantik) 12.5 mg PO QAM #30 tabs 01/25/23 03/11/23 Rx naloxone 4 mg/actuation nasal spray 1 spray intranasal Q3M PRN opioid 01/25/23 03/11/23 Rx overdose #2 ea omeprazole 20 mg capsule,delayed 20 mg PO QAM 01/25/23 03/11/23 History release ondansetron 4 mg disintegrating 4 mg PO Q6H PRN Nausea And Vomiting 01/25/23 03/11/23 History tablet polyethylene glycol 3350 17 17 g PO DAILY PRN Constipation 01/25/23 03/11/23 History gram/dose oral powder (Miralax) prochlorperazine maleate 5 mg 5 mg PO Q6H PRN nausea and 01/25/23 03/11/23 Rx tablet vomiting #60 tabs acetaminophen 500 mg tablet 1,000 mg PO BID PRN Pain 02/06/23 03/11/23 History fentanyl 50 mcg/hr transdermal 1 patch transdermal Q72H very 02/15/23 03/11/23 Rx patch severe cancer pain 1 month #10 ea morphine 15 mg immediate release 15 mg PO Q4H PRN breakthru cancer 02/15/23 03/11/23 Rx tablet pain 1 month #120 tabs duloxetine 30 mg capsule,delayed 30 mg PO QPM ca related 03/11/23 03/11/23 History release depression/anxiety & adjunct pain mgt lorazepam 0.5 mg tablet 0.5 mg PO BID PRN tremors 03/11/23 03/11/23 History promethazine 12.5 mg tablet 12.5 mg PO Q6 PRN Nausea 03/11/23 03/11/23 History Patient History Medical History Insomnia due to psychological stress Paranoia Hypothyroidism History of COVID-19 01/19/23, tested + [facility] ER, asymptomatic>"never developed any symptoms either" Constipation 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 Burton History of esophagogastroduodenoscopy (EGD) Hx of lymph node biopsy node removed near throat Social History Smoking Status: Never smoker Second Hand Exposure: No; Do You Dip or Chew Tobacco: No; Hx Alcohol Use: No Hx Substance Use: No Preferred Language: Mohawk Communication Ability: Effective Graphics Specialist Required: No Beliefs That Will Affect Care: None Current Living Situation: Spouse Feels Safe at Home: Yes Assistive Devices: None Review of Systems Review of Systems: All systems reviewed & are unremarkable except as noted in Subjective Physical Exam Physical Exam: tearful jaundiced NCAT perrla +icteric sclera neck supple/no stridor abd distended and +guarding AAOx3 gen weakness mood tearful and anxious Results & Data Vital Signs (Past 12 Hours) Vital Signs Temp Pulse Pulse Resp BP BP Pulse Ox 03/12/23 17:17 93 H 03/12/23 16:05 36.4 C L 84 17 123/78 100 03/12/23 11:42 36.5 C 93 H 18 101/52 L 99 03/12/23 09:40 03/12/23 07:59 36.8 C 95 H 18 114/72 96 O2 Del Method 03/12/23 17:17 03/12/23 16:05 Room Air 03/12/23 11:42 Room Air 03/12/23 09:40 Room Air 03/12/23 07:59 Room Air Laboratory Results data reviewed, see HPI Diagnostic Findings data reviewed, see HPI PG Care Time/CCT Total # of Minutes Spent Total Time Spent: 140 Total Time Spent with Patient: Total time spent is greater than 50% in coordination of care (as documented) at patient's floor/unit and/or counseling patient: I spent 140 minutes overall addressing this case: 15 min in medical data review/discussion with referring provider(s) and/or preparation for the visit 20 min in direct interaction with the patient/exam 70 min in Advance Care Planning/Goals of Care discussions as detailed above in note (must be >16min) 15 min in subsequent review and synthesis of assessment and plan 20 min communicating with other providers regarding the patient's case: nursing, primary team care mgt, med onc/Dr Sampson Advanced Care Planning 42449 Advanced Care Planning 30 Min 13011 Advanced Care Planning Additional 30 [place] [address] IN/OBS CONSULT LVL 5,80M Patient Type New History Comprehensive Exam Comprehensive Medical Decision Making High Complexity Diagnoses Cancer related pain G89.3 Adjustment disorder with anxiety F43.22 Advanced care planning/counseling discussion Z71.89 Pancreatic cancer metastasized to liver C25.9; C78.7 Palliative care by specialist Z51.5 Additional Codes Advanced Care Planning - 31588 Advanced Care Planning 30 Min: 94033 Advanced Care Planning 30 Min ([id number]) Advanced Care Planning - 17147 Advanced Care Planning Additional 30 Min: 46889 Advanced Care Planning Additional 30 Min ([id number])
[2023-03-14] MEDS ORDERED: fentaNYL 50 MCG/HR TDSY TD SCH (19:00)
== END 2023-03-12 20:00 | disposition short-term general hospital (02) | DRG 445 ==
LOC: ED 13:27 → EDINP 17:43 → SUATTDRO 17:43 → 2W 18:30